=== PATIENT | female | born 1960 | race Caucasian/White ===

== ENCOUNTER → 2016-07-23 | Outpatient (CLI) | payer OTHER ==
--- NOTE | 2016-07-24 10:49 | MM ---
Reason for exam: screening (asymptomatic). Last mammogram was performed 19 years and 2 months ago. History: Patient is nulliparous. Physical Findings: A clinical breast exam by your physician is recommended on an annual basis and results should be correlated with mammographic findings. MG Screening Mammo w CAD Bilateral CC and MLO view(s) were taken. No prior studies available for comparison. The breast tissue is extremely dense which could obscure a lesion on mammography. There is no discrete abnormality. ASSESSMENT: Benign, BI-RAD 2 RECOMMENDATION: Routine screening mammogram of both breasts in 1 year.
== END | disposition home or self-care (01) ==
LOC: RADMAMWWP 07:57
PROVIDERS: ATTEND Internal Medicine
DX: Z12.31 Encounter for screening mammogram for malignant neoplasm of breast (principal)

== ENCOUNTER 2016-07-29 07:34 | Emergency (ER) | payer OTHER ==
--- NOTE | 2016-07-29 08:26 | ED ---
Eye Problem HPI - General Chief complaint: Eye Problems Stated complaint: eye pain Time Seen by Provider: 07/29/16 08:03 Source: patient, RN notes reviewed Mode of arrival: ambulatory Limitations: no limitations - History of Present Illness Initial comments: 56-year-old female presents emergency Department with chief complaint of right eye redness. Patient states started 3 days ago. Patient states she has a history of uveitis. Patient states that she has had treatment from her underwear hemmer several times with Pred forte. Patient states that she does have some pain and irritation noted of the eye she denies any visual changes. She states that she noticed the redness and some photophobia. Patient states that there has been some tearing but no purulent drainage. Patient denies any trauma. - Related Data Home Medications Medication Instructions Recorded Confirmed ARIPiprazole [Abilify] 0 mg PO 04/26/14 04/26/14 Atorvastatin Calcium [Lipitor] 10 mg PO DAILY 04/26/14 04/26/14 DULoxetine HCL [Cymbalta] 20 mg PO DAILY 04/26/14 04/26/14 HYDROcodone/APAP 5-325MG [[place] 5] 1 each PO Q6HR PRN 04/26/14 04/26/14 Levothyroxine Sodium [Synthroid] 88 mcg PO DAILY 04/26/14 04/26/14 Loratadine [Claritin] 5 mg PO DAILY 04/26/14 04/26/14 Previous Rx's Medication Instructions Recorded Ibuprofen [Motrin] 600 mg PO Q6HR PRN #20 tab 04/26/14 Sulfamethox-Tmp 800-160Mg [Bactrim 2 each PO Q12HR #56 tab 04/26/14 DS 800-160 mg] Allergies Allergy/AdvReac Type Severity Reaction Status Date / Time No Known Allergies Allergy Verified 07/29/16 07:40 Review of Systems ROS Statement: Those systems with pertinent positive or pertinent negative responses have been documented in the HPI. ROS Other: All systems not noted in ROS Statement are negative. Past Medical History Past Medical History: Asthma, COPD, Hyperlipidemia, Thyroid Disorder Additional Past Medical History / Comment(s): herpes scoliosis History of Any Multi-Drug Resistant Organisms: MRSA Date of last positivie culture/infection: 04/26/2014 MDRO Source:: Groin Past Surgical History: Orthopedic Surgery Additional Past Surgical History / Comment(s): shoulder, arm, Past Psychological History: Depression Smoking Status: Current every day smoker Past Alcohol Use History: None Reported, Rare Past Drug Use History: None Reported General Exam Limitations: no limitations General appearance: alert, in no apparent distress Head exam: Present: atraumatic, normocephalic, normal inspection Eye exam: Present: PERRL, EOMI, conjunctival injection, other (No uptake of fluorescein dye). Absent: normal appearance, scleral icterus, periorbital swelling, periorbital tenderness ENT exam: Present: normal exam, normal oropharynx, mucous membranes moist Neck exam: Present: normal inspection. Absent: tenderness, meningismus, lymphadenopathy Respiratory exam: Present: normal lung sounds bilaterally. Absent: respiratory distress, wheezes, rales, rhonchi, stridor Cardiovascular Exam: Present: regular rate, normal rhythm, normal heart sounds. Absent: systolic murmur, diastolic murmur, rubs, gallop, clicks Course Vital Signs 07/29/16 07:36 Temperature 97.0 F L Pulse Rate 100 Respiratory 18 Rate Blood Pressure 153/69 O2 Sat by Pulse 100 Oximetry Medical Decision Making - Medical Decision Making 56-year-old female presented for right eye redness. Patient states this a large amount of injection. This may be uveitis. I did discuss the case with Dr. Leyva's office and they agreed to see the patient now the patient will be discharged and sent over for further evaluation. Disposition Clinical Impression: Redness of right eye, Uveitis Disposition: HOME SELF-CARE Condition: Stable Instructions: Iritis (ED) Additional Instructions: Please go directly to Dr. Amaral's office.Please return to the Emergency Department if symptoms worsen or any other concerns. Referrals: Truong Dominguez MD [Primary Care Provider] - 1-2 days Dajuan Castaneda MD [STAFF PHYSICIAN] - 1-2 days Time of Disposition: 08:26
[2016-07-29 09:10] VITALS: BP 141/82; PULSE 78; RESP 16; TEMP 97.5
== END 2016-07-29 09:22 | disposition home or self-care (01) ==
LOC: EC 07:34
DX: H20.9 Unspecified iridocyclitis (principal); E07.9 Disorder of thyroid, unspecified; F32.9 Major depressive disorder, single episode, unspecified; F17.200 Nicotine dependence, unspecified, uncomplicated; Z79.899 Other long term (current) drug therapy
CPT/HCPCS: 99283

== ENCOUNTER 2018-04-06 07:46 | Emergency (ER) | payer OTHER ==
[2018-04-06 08:01] VITALS: RESP 16; TEMP 98.1
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
--- NOTE | 2018-04-06 08:57 | XR ---
EXAMINATION TYPE: XR forearm LT, XR wrist complete LT DATE OF EXAM: 04/06/2018 CLINICAL HISTORY: Pain after fall injury. TECHNIQUE: Two views of the left forearm are obtained. 4 views left wrist are acquired. COMPARISON: None. FINDINGS: Demineralization is present which is noted to lower radiographic sensitivity. There is disp laced comminuted fracture through distal humerus. Please see same day humerus report for complete det ails. There is no acute fracture or dislocation seen in the left radius or ulna. Overlying soft tissu e is unremarkable. Images of left wrist show old healed fractures of distal radial meta-epiphysis and ulnar styloid. Car pal joint spaces are maintained. No acute fracture or dislocation is seen. Overlying soft tissue is u nremarkable. IMPRESSION: There is no acute fracture or dislocation seen in the left wrist, radius, or ulna. Displ aced comminuted acute fracture distal humerus noted.
--- NOTE | 2018-04-06 08:59 | XR ---
Left humerus HISTORY: Trauma and pain 2 views of the left humerus on 4 images correlated to left forearm same date Low bone mineralization. Intra-articular comminuted distal humeral fracture is present, displaced hum eral condyles. IMPRESSION: Elbow fractures
[2018-04-06 11:40] VITALS: BP 138/83; PULSE 81
== END 2018-04-06 11:00 | disposition short-term general hospital (02) ==
LOC: EC 07:46
DX: S42.402A Unspecified fracture of lower end of left humerus, initial encounter for closed fracture (principal); E78.5 Hyperlipidemia, unspecified; J44.9 Chronic obstructive pulmonary disease, unspecified; E07.9 Disorder of thyroid, unspecified; F32.9 Major depressive disorder, single episode, unspecified; F17.200 Nicotine dependence, unspecified, uncomplicated; Z79.51 Long term (current) use of inhaled steroids; Z79.899 Other long term (current) drug therapy; W01.0XXA Fall on same level from slipping, tripping and stumbling without subsequent striking against object, initial encounter; Y93.01 Activity, walking, marching and hiking
CPT/HCPCS: 99285

== ENCOUNTER 2018-12-23 12:35 | Emergency (ER) | payer OTHER ==
[2018-12-23 12:43] VITALS: BP 114/88; PULSE 90; RESP 16; TEMP 98
--- NOTE | 2018-12-23 13:44 | US ---
EXAMINATION TYPE: US venous doppler duplex LE LT DATE OF EXAM: 12/23/2018 1:32 PM COMPARISON: NONE CLINICAL HISTORY: swelling. Pain and edema left leg SIDE PERFORMED: left TECHNIQUE: The lower extremity deep venous system is examined utilizing real time linear array sonog cheo with graded compression, doppler sonography and color-flow sonography. VESSELS IMAGED: External Iliac Vein (EIV) Common Femoral Vein Deep Femoral Vein Greater Saphenous Vein * Femoral Vein Popliteal Vein Small Saphenous Vein * Proximal Calf Veins (* superficial vessels) Left Leg: No evidence of DVT IMPRESSION: 1. Left lower extremity ultrasound negative for deep venous thrombosis.
--- NOTE | 2018-12-23 14:31 | XR ---
EXAMINATION TYPE: XR ankle complete LT DATE OF EXAM: 12/23/2018 COMPARISON: NONE HISTORY: Pain FINDINGS: Three views of the ankle demonstrate the ankle mortise to be intact and symmetric. The joint spaces are preserved. The osseous structures are intact. Diffuse osteopenia. IMPRESSION: 1. No definite acute fracture or dislocation, if symptoms persist follow-up study in 7 to 10 days wou ld be suggested.
--- NOTE | 2018-12-23 14:32 | XR ---
EXAMINATION TYPE: XR tibia fibula LT DATE OF EXAM: 12/23/2018 COMPARISON: NONE HISTORY: Pain TECHNIQUE: Two views are submitted. FINDINGS: Diffuse osteopenia with narrowing of the medial compartment knee joint. There is a displaced fracture involving the proximal neck of the fibula. IMPRESSION: 1. There is a displaced fracture involving the proximal fibula with comminution.
--- NOTE | 2018-12-23 14:32 | XR ---
EXAMINATION TYPE: XR pelvis AP view DATE OF EXAM: 12/23/2018 COMPARISON: NONE HISTORY: Pain The osseous structures are intact and the joint spaces are preserved. No acute fracture is seen. Vi sualized bowel gas pattern is nonspecific. IMPRESSION: 1. No acute fracture.
--- NOTE | 2018-12-23 14:33 | XR ---
EXAMINATION TYPE: XR knee complete LT DATE OF EXAM: 12/23/2018 COMPARISON: NONE HISTORY: Pain TECHNIQUE: Four views are submitted. FINDINGS: There is diffuse osteopenia and there is narrowing the medial compartment of the knee joint. There is a displaced fracture involving the proximal fibula. IMPRESSION: 1. Displaced fracture proximal fibula. 2. Osteoarthritis. 3. Diffuse osteopenia.
--- NOTE | 2018-12-23 14:34 | XR ---
EXAMINATION TYPE: XR foot complete LT DATE OF EXAM: 12/23/2018 COMPARISON: NONE HISTORY: Pain TECHNIQUE: Three views are submitted. FINDINGS: The osseous structures are intact. There is no acute fracture or dislocation. Diffuse osteopenia. There is narrowing and hypertrophic change of the first MTP joint. Tiny sclerotic focus involving the calcaneus is most typical of a bone island. IMPRESSION: 1. No acute fracture or dislocation. If symptoms persist, follow-up exam in 7 to 10 days could be ob tained.
--- NOTE | 2018-12-23 14:40 | XR ---
EXAMINATION TYPE: XR femur LT DATE OF EXAM: 12/23/2018 COMPARISON: None HISTORY: Trauma, pain TECHNIQUE: Left femur is examined in 2 projections FINDINGS: Femoral head articulates with the acetabulum. No acute fracture or dislocation is evident. Mild joint space narrowing of the knee may be present. There is a fracture at the fibular head on the lateral femur projection. IMPRESSION: 1. Fracture at the femoral head partially visualized. 2. Femur appears intact.
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
== END 2018-12-23 15:25 | disposition left against medical advice (07) ==
LOC: EC 12:35
DX: S82.832A Other fracture of upper and lower end of left fibula, initial encounter for closed fracture (principal); J44.9 Chronic obstructive pulmonary disease, unspecified; E07.9 Disorder of thyroid, unspecified; E78.5 Hyperlipidemia, unspecified; F32.9 Major depressive disorder, single episode, unspecified; Z79.51 Long term (current) use of inhaled steroids; Z79.890 Hormone replacement therapy; Z79.899 Other long term (current) drug therapy; Z87.891 Personal history of nicotine dependence; V29.9XXA Motorcycle rider (driver) (passenger) injured in unspecified traffic accident, initial encounter
CPT/HCPCS: 72170; 99284

== ENCOUNTER 2019-04-25 08:15 | Inpatient (IN) | payer OTHER ==
[2019-04-25] MEDS ORDERED: SODIUM CHLORIDE 0.9% 1,000 ML IV ONE ×2 (08:24→11:44)
--- NOTE | 2019-04-25 08:25 | ED ---
General Adult HPI - General Stated complaint: AMS, ETOH Time Seen by Provider: 04/25/19 08:15 Source: patient, EMS, RN notes reviewed, old records reviewed - History of Present Illness Initial comments: This is a 59-year-old female who presents emergency department intoxicated. Patient is not really sure why she is here she's given multiple stories but according to EMS they were called because the patient refuses to get out of her chair and she is urinating and defecating in the chair and there was also evidence of emesis around her. Patient herself just wants something for her chronic back pain for the last 4 years but she states she's had no injury. Patient states she is having difficulty walking but according to EMS she was able to get up out of her chair and walk to the stretcher. Patient denies any recent fever chills per patient denies any chest pain palpitations difficulty breathing. Patient denies any abdominal pain. She states she did drink heavily and smokes marijuana and has also taken and [place]. - Related Data Home Medications Medication Instructions Recorded Confirmed Loratadine [Claritin] 10 mg PO DAILY 04/26/14 12/23/18 Atorvastatin [Lipitor] 40 mg PO HS 07/29/16 12/23/18 Gemfibrozil [Lopid] 600 mg PO AC-BID 07/29/16 12/23/18 Omeprazole [PriLOSEC] 20 mg PO AC-BID 07/29/16 12/23/18 ARIPiprazole [Abilify] 10 mg PO DAILY 04/06/18 12/23/18 Albuterol Inhaler [Ventolin Hfa 1 - 2 puff INHALATION RT-Q6H PRN 04/06/18 12/23/18 Inhaler] Budesonide-Formot 160-4.5 Mcg 2 puff INHALATION RT-BID 04/06/18 12/23/18 [Symbicort 160-4.5 Mcg Inhaler] DULoxetine HCL [Cymbalta] 60 mg PO DAILY 04/06/18 12/23/18 Ergocalciferol [Vitamin D2] 50,000 unit PO TU 04/06/18 12/23/18 Furosemide [Lasix] 20 mg PO DAILY 04/06/18 12/23/18 Levothyroxine Sodium [Synthroid] 100 mcg PO DAILY 04/06/18 12/23/18 Multivitamins, Thera [Multivitamin 1 tab PO DAILY 04/06/18 12/23/18 (formulary)] traZODone HCL 50 mg PO HS PRN 04/06/18 12/23/18 Allergies Allergy/AdvReac Type Severity Reaction Status Date / Time No Known Allergies Allergy Verified 12/23/18 14:01 Review of Systems ROS Statement: Those systems with pertinent positive or pertinent negative responses have been documented in the HPI. ROS Other: All systems not noted in ROS Statement are negative. Past Medical History Past Medical History: Asthma, COPD, Hyperlipidemia, Thyroid Disorder Additional Past Medical History / Comment(s): herpes and scoliosis History of Any Multi-Drug Resistant Organisms: MRSA Date of last positivie culture/infection: 04/26/2014 MDRO Source:: Groin Past Surgical History: Orthopedic Surgery Additional Past Surgical History / Comment(s): shoulder, arm, Past Psychological History: Depression Smoking Status: Former smoker Past Alcohol Use History: None Reported, Rare Past Drug Use History: Marijuana - Past Family History Father Family Medical History: Myocardial Infarction ([place]) Additional Family Medical History / Comment(s): Father of a coronary thrombus at the age of 48yrs. Mother Family Medical History: No Reported History Additional Family Medical History / Comment(s): Mother is healthy and is 86 yrs old. General Exam - General Exam Comments Initial Comments: GENERAL: Patient is well-developed and well-nourished. Patient is nontoxic and well- hydrated and appears to be very intoxicated ENT: Neck is soft and supple. No significant lymphadenopathy is noted. Oropharynx is clear. Moist mucous membranes. Neck has full range of motion without eliciting any pain. EYES: The sclera were anicteric and conjunctiva were pink and moist. Extraocular movements were intact and pupils were equal round and reactive to light. Eyelids were unremarkable. PULMONARY: Unlabored respirations. Good breath sounds bilaterally. No audible rales rhonchi or wheezing was noted. CARDIOVASCULAR: There is a regular rate and rhythm without any murmurs gallops or rubs. ABDOMEN: Soft and nontender with normal bowel sounds. No palpable organomegaly was noted. There is no palpable pulsatile mass. SKIN: Skin is clear with no lesions or rashes and otherwise unremarkable. NEUROLOGIC: Patient is alert and oriented x3. Cranial nerves II through XII are grossly intact. Motor and sensory are also intact. Normal speech, volume and content. Symmetrical smile. MUSCULOSKELETAL: Normal extremities with adequate strength and full range of motion. LYMPHATICS: No significant lymphadenopathy is noted PSYCHIATRIC: Patient is too intoxicated to accurately assess Course Vital Signs 04/25/19 08:34 Temperature 98.9 F Pulse Rate 97 Respiratory 20 Rate Blood Pressure 120/71 O2 Sat by Pulse 96 Oximetry Medical Decision Making - Medical Decision Making EKG shows sinus rhythm at 104 bpm [place] interval 172 QRS is 90 QT interval 380 QTC is 499. Patient's EKG shows some ST segment depression in leads V4 V5 and V6. CT of the brain shows no acute abnormality. Patient attempted to ambulate and she said she could not and quickly back down about - Lab Data Result diagrams: 04/25/19 08:23 04/25/19 08:23 Lab Results 04/25/19 04/25/19 04/25/19 Range/Units 08:23 08:23 08:23 WBC 8.9 (3.8-10.6) k/uL RBC 5.05 (3.80-5.40) m/uL Hgb 14.3 (11.4-16.0) gm/dL Hct 44.7 (34.0-46.0) % MCV 88.5 (80.0-100.0) fL MCH 28.4 (25.0-35.0) pg MCHC 32.1 (31.0-37.0) g/dL RDW 15.1 (11.5-15.5) % Plt Count 208 (150-450) k/uL Neutrophils % 67 % Lymphocytes % 24 % Monocytes % 3 % Eosinophils % 3 % Basophils % 1 % Neutrophils # 6.0 (1.3-7.7) k/uL Lymphocytes # 2.1 (1.0-4.8) k/uL Monocytes # 0.3 (0-1.0) k/uL Eosinophils # 0.2 (0-0.7) k/uL Basophils # 0.1 (0-0.2) k/uL Sodium 144 (137-145) mmol/L Potassium 2.8 L (3.5-5.1) mmol/L Chloride 104 (98-107) mmol/L Carbon Dioxide 26 (22-30) mmol/L Anion Gap 14 mmol/L BUN 19 H (7-17) mg/dL Creatinine 0.44 L (0.52-1.04) mg/dL Est GFR (CKD-EPI)AfAm >90 (>60 ml/min/1.73 sqM) Est GFR (CKD-EPI)NonAf >90 (>60 ml/min/1.73 sqM) Glucose 135 H (74-99) mg/dL Calcium 9.6 (8.4-10.2) mg/dL Magnesium 1.6 (1.6-2.3) mg/dL Total Bilirubin 0.5 (0.2-1.3) mg/dL AST 29 (14-36) U/L ALT 32 (4-34) U/L Alkaline Phosphatase 103 (38-126) U/L Total Protein 6.8 (6.3-8.2) g/dL Albumin 4.1 (3.5-5.0) g/dL Salicylates <1.0 mg/dL Urine Opiates Screen (NotDetected) Ur Oxycodone Screen (NotDetected) Urine Methadone Screen (NotDetected) Ur Propoxyphene Screen (NotDetected) Acetaminophen <10.0 ug/mL Ur Barbiturates Screen (NotDetected) U Tricyclic Antidepress (NotDetected) Ur Phencyclidine Scrn (NotDetected) Ur Amphetamines Screen (NotDetected) U Methamphetamines Scrn (NotDetected) U Benzodiazepines Scrn (NotDetected) Urine Cocaine Screen (NotDetected) U Marijuana (THC) Screen (NotDetected) Serum Alcohol mg/dL 04/25/19 04/25/19 Range/Units 08:28 09:10 WBC (3.8-10.6) k/uL RBC (3.80-5.40) m/uL Hgb (11.4-16.0) gm/dL Hct (34.0-46.0) % MCV (80.0-100.0) fL MCH (25.0-35.0) pg MCHC (31.0-37.0) g/dL RDW (11.5-15.5) % Plt Count (150-450) k/uL Neutrophils % % Lymphocytes % % Monocytes % % Eosinophils % % Basophils % % Neutrophils # (1.3-7.7) k/uL Lymphocytes # (1.0-4.8) k/uL Monocytes # (0-1.0) k/uL Eosinophils # (0-0.7) k/uL Basophils # (0-0.2) k/uL Sodium (137-145) mmol/L Potassium (3.5-5.1) mmol/L Chloride (98-107) mmol/L Carbon Dioxide (22-30) mmol/L Anion Gap mmol/L BUN (7-17) mg/dL Creatinine (0.52-1.04) mg/dL Est GFR (CKD-EPI)AfAm (>60 ml/min/1.73 sqM) Est GFR (CKD-EPI)NonAf (>60 ml/min/1.73 sqM) Glucose (74-99) mg/dL Calcium (8.4-10.2) mg/dL Magnesium (1.6-2.3) mg/dL Total Bilirubin (0.2-1.3) mg/dL AST (14-36) U/L ALT (4-34) U/L Alkaline Phosphatase (38-126) U/L Total Protein (6.3-8.2) g/dL Albumin (3.5-5.0) g/dL Salicylates mg/dL Urine Opiates Screen Detected H (NotDetected) Ur Oxycodone Screen Not Detected (NotDetected) Urine Methadone Screen Not Detected (NotDetected) Ur Propoxyphene Screen Not Detected (NotDetected) Acetaminophen ug/mL Ur Barbiturates Screen Not Detected (NotDetected) U Tricyclic Antidepress Detected H (NotDetected) Ur Phencyclidine Scrn Not Detected (NotDetected) Ur Amphetamines Screen Not Detected (NotDetected) U Methamphetamines Scrn Not Detected (NotDetected) U Benzodiazepines Scrn Not Detected (NotDetected) Urine Cocaine Screen Not Detected (NotDetected) U Marijuana (THC) Screen Detected H (NotDetected) Serum Alcohol 174 mg/dL Disposition Clinical Impression: Alcohol intoxication, Altered mental status, Unable to ambulate, Hypokalemia Disposition: ADMITTED IP TO THIS [facility] Time of Disposition: 11:37
[2019-04-25 08:41] LABS: Basophils # (A) 0.1 k/uL (0-0.2); Basophils % (A) 1 %; Eosinophils # (A) 0.2 k/uL (0-0.7); Eosinophils % (A) 3 %; HCT 44.7 % (34.0-46.0); HGB 14.3 gm/dL (11.4-16.0); Lymphocytes # (A) 2.1 k/uL (1.0-4.8); Lymphocytes % (A) 24 %; MCH 28.4 pg (25.0-35.0); MCHC 32.1 g/dL (31.0-37.0); MCV 88.5 fL (80.0-100.0); Mean Platelet Volume 8.8; Monocytes # (A) 0.3 k/uL (0-1.0); Monocytes % (A) 3 %; Neutrophils % (A) 67 %; Platelet Count 208 k/uL (150-450); RBC 5.05 m/uL (3.80-5.40); RDW 15.1 % (11.5-15.5); WBC 8.9 k/uL (3.8-10.6)
[2019-04-25] MEDS ORDERED: SODIUM CHLORIDE 0.9% 1,000 ML with MVI, ADULT NO.4 WITH VIT K 10 ML, THIAMINE 100 MG, F... IV ONE ×4 (08:45)
[2019-04-25 08:55] LABS: ALT 32 U/L (4-34); AST 29 U/L (14-36); African American GFR (CKD) >90 (>60 ml/min/1.73 sqM); Albumin 4.1 g/dL (3.5-5.0); Alkaline Phosphatase 103 U/L (38-126); Anion Gap 14 mmol/L; Blood Urea Nitrogen 19 mg/dL (7-17); Calcium 9.6 mg/dL (8.4-10.2); Carbon Dioxide 26 mmol/L (22-30); Chloride 104 mmol/L (98-107); Glucose 135 mg/dL (74-99); Magnesium 1.6 mg/dL (1.6-2.3); Non-African American GFR(CKD) >90 (>60 ml/min/1.73 sqM); Potassium 2.8 mmol/L (3.5-5.1); Sodium 144 mmol/L (137-145); Total Bilirubin 0.5 mg/dL (0.2-1.3); Total Protein 6.8 g/dL (6.3-8.2)
[2019-04-25 08:59] LABS: Acetaminophen <10.0 ug/mL; Salicylate <1.0 mg/dL
[2019-04-25 09:08] LABS: Amphetamine Screen,Urine Not Detected (NotDetected); Barbiturate Screen,Urine Not Detected (NotDetected); Benzodiazepines Screen,Urine Not Detected (NotDetected); Cocaine Screen,Urine Not Detected (NotDetected); Methadone Screen, Urine Not Detected (NotDetected); Opiate Screen,Urine Detected (NotDetected); Oxycodone Screen, Urine Not Detected (NotDetected); Phencyclidine Screen,Urine Not Detected (NotDetected); Tricyclic Antidepressant,Urine Detected (NotDetected); Urn Cannabinoid Scrn Detected (NotDetected)
--- NOTE | 2019-04-25 11:08 | CT ---
EXAMINATION TYPE: CT brain wo con DATE OF EXAM: 04/25/2019 HISTORY: altered mental status CT DLP: 1099.4 mGycm. Automated Exposure Control for Dose Reduction was Utilized. TECHNIQUE: CT scan of the head is performed without contrast. COMPARISON: None. FINDINGS: There is no acute intracranial hemorrhage or midline shift identified. There is diffuse v entricular and sulcal prominence consistent with diffuse cerebral atrophy this is most prominent over the bilateral frontal lobes. There is low-attenuation in the periventricular white matter consisten t with chronic small vessel ischemic change. There is old fracture deformity medial wall left orbit. Globes are intact bilaterally. Mild mucosal thickening anterior sphenoid sinuses bilaterally. Mild to moderate mucosal thickening involving ethmoid sinuses bilaterally. IMPRESSION: No acute intracranial hemorrhage or midline shift. There is [id number] diffuse ce rebral atrophy greatest over bilateral frontal lobes and mild to minimal chronic small vessel ischemi c change noted.
[2019-04-25] MEDS ORDERED: THIAMINE 100 MG/ML 2 ML VIAL IM STA (12:19)
[2019-04-25] MEDS ORDERED: LORazepam 2 MG/ML INJ IV PRN ×3 (12:19)
[2019-04-25] MEDS: POTASSIUM CHLORIDE 10 MEQ in WATER FOR INJECTION 1 100ML.BAG IVPB SCH ×4 (14:35→18:01)
[2019-04-25] MEDS ORDERED: DEXAMETHASONE SOD PHOSPHATE 10 MG/ML 1 ML VIAL IV STA (15:02)
[2019-04-25] MEDS: THIAMINE 100 MG TAB PO SCH (16:11)
[2019-04-25] MEDS: MORPHINE SULFATE 2 MG/ML SYRINGE IVP PRN (16:40)
--- NOTE | 2019-04-25 16:53 | P.HPIM ---
History of Present Illness This is a pleasant 59 years old female with past medical history of asthma/COPD, hyperlipidemia, hypothyroidism, depression. She follows up with Dr. Calvin Calle the neurologist and she is recently prescribed [place] 10 mg. She is a patient of Dr. darnell. pt states she came to hospital because of difficulty walking , she has long history of low back pain radiating to both legs/ankles and she follows up with , she is on norco 10-325 mg for this reason, over the last six months she was walking depending on the help of someone to lean on , and could walk small distance ( across the room ) as pt describes. over the last one week it became more difficult for her to walk, she is complaining from significant low back pain and on her pelvis when she walks today when EMS she was in her feces and urine , she explains that because she was drinking vodka, she drinks about twice per week and she could not tell the amount exactly , also she smokes cigarettes b about 1/2 PPD. pt is counseled and she agrees with nicotine patch. Vitals looks stable. Labs CBC and BMP were unremarkable except for low potassium at 2.8, creatinine and sodium are within normal limits, liver enzymes not elevated. Urine drug screen is positive for opioids, tricyclic antidepressants and marijuana. Serum alcohol level was 174. Review of Systems CONSTITUTIONAL: No fever, no malaise, no fatigue. HEENT: No recent visual problems or hearing problems. Denied any sore throat. CARDIOVASCULAR: No orthopnea, PND, no palpitations, no syncope. PULMONARY: No shortness of breath, no cough, no hemoptysis. GASTROINTESTINAL: No diarrhea, no nausea, no vomiting, no abdominal pain. Normoactive bowel sounds. NEUROLOGICAL: No headaches, no weakness, no numbness. HEMATOLOGICAL: Denies any bleeding or petechiae. GENITOURINARY: Denies any burning micturition, frequency, or urgency. MUSCULOSKELETAL/RHEUMATOLOGICAL: Denies any joint pain, swelling, or any muscle pain. ENDOCRINE: Denies any polyuria or polydipsia. Past Medical History Past Medical History: Asthma, COPD, Hyperlipidemia, Thyroid Disorder Additional Past Medical History / Comment(s): herpes and scoliosis History of Any Multi-Drug Resistant Organisms: MRSA Date of last positivie culture/infection: 04/26/2014 MDRO Source:: Groin Past Surgical History: Orthopedic Surgery Additional Past Surgical History / Comment(s): shoulder, arm, Past Psychological History: Depression Smoking Status: Former smoker Past Alcohol Use History: None Reported, Rare Past Drug Use History: Marijuana - Past Family History Father Family Medical History: Myocardial Infarction ([place]) Additional Family Medical History / Comment(s): Father of a coronary thrombus at the age of 48yrs. Mother Family Medical History: No Reported History Additional Family Medical History / Comment(s): Mother is healthy and is 86 yrs old. Medications and Allergies Home Medications Medication Instructions Recorded Confirmed Type Loratadine [Claritin] 10 mg PO DAILY 04/26/14 04/25/19 History Atorvastatin [Lipitor] 40 mg PO HS 07/29/16 04/25/19 History Omeprazole [PriLOSEC] 20 mg PO AC-BID 07/29/16 04/25/19 History ARIPiprazole [Abilify] 10 mg PO DAILY 04/06/18 04/25/19 History Albuterol Inhaler [Ventolin Hfa 1 - 2 puff INHALATION RT-Q6H PRN 04/06/18 04/25/19 History Inhaler] DULoxetine HCL [Cymbalta] 60 mg PO DAILY 04/06/18 04/25/19 History Ergocalciferol [Vitamin D2] 50,000 unit PO TU 04/06/18 04/25/19 History Furosemide [Lasix] 20 mg PO DAILY 04/06/18 04/25/19 History Multivitamins, Thera [Multivitamin 1 tab PO DAILY 04/06/18 04/25/19 History (formulary)] traZODone HCL 50 mg PO HS PRN 04/06/18 04/25/19 History HYDROcodone/APAP 10-325MG [[place] 1 tab PO TID 04/25/19 04/25/19 History 10-325] Levothyroxine Sodium [Synthroid] 88 mcg PO DAILY 04/25/19 04/25/19 History Allergies Allergy/AdvReac Type Severity Reaction Status Date / Time No Known Allergies Allergy Verified 04/25/19 12:35 Physical Exam Vitals: Vital Signs Temp Pulse Resp BP Pulse Ox 04/25/19 13:39 98.9 F 100 18 163/99 96 04/25/19 13:32 100 18 163/99 96 04/25/19 08:34 98.9 F 97 20 120/71 96 Intake and Output 04/24/19 04/25/19 04/25/19 22:59 06:59 14:59 Other: Weight 54.431 kg GENERAL: The patient is alert and oriented x3, not in any acute distress. Well developed, well nourished. HEENT: Pupils are round and equally reacting to light. EOMI. No scleral icterus. No conjunctival pallor. Normocephalic, atraumatic. No pharyngeal erythema. No thyromegaly. CARDIOVASCULAR: S1 and S2 present. No murmurs, rubs, or gallops. PULMONARY: Chest is clear to auscultation, no wheezing or crackles. ABDOMEN: Soft, nontender, nondistended, normoactive bowel sounds. No palpable organomegaly. MUSCULOSKELETAL: No joint swelling or deformity. EXTREMITIES: No cyanosis, clubbing, or pedal edema. -NEUROLOGICAL: cranial nn are grossly intact. strength in both lower ext: mild weakness bilaterally, sensation is intact, meningeal signs are absent SKIN: No rashes. No petechiae Results CBC & Chem 7: 04/25/19 08:23 04/25/19 08:23 Labs: Abnormal Lab Results - Last 24 Hours (Table) 04/25/19 04/25/19 Range/Units 08:23 08:28 Potassium 2.8 L (3.5-5.1) mmol/L BUN 19 H (7-17) mg/dL Creatinine 0.44 L (0.52-1.04) mg/dL Glucose 135 H (74-99) mg/dL Urine Opiates Screen Detected H (NotDetected) U Tricyclic Antidepress Detected H (NotDetected) U Marijuana (THC) Screen Detected H (NotDetected) Thrombosis Risk Factor Assmnt - Choose All That Apply Any of the Below Risk Factors Present?: Yes Each Factor Represents 1 point: Abnormal pulmonary function (COPD), Age 41-60 years Other Risk Factors: No Other congenital or acquired thrombophilia - If yes, enter type in comment: No Thrombosis Risk Factor Assessment Total Risk Factor Score: 2 Thrombosis Risk Factor Assessment Level: Low Risk Assessment and Plan Assessment: ongoing chronic low back pain radiating to both ankles , suspicious for sciatica , with chronic difficulty walking and recent worsening Alcohol abuse, risk of withdrawal severe Hypokalemia nicotine dependance Asthma/COPD, not an active issue Hyperlipidemia Hypothyroidism Depression Plan: this is a pleasant 59 yo F who presests with alcohol abuse , risk of alcohol withdrawal, also sever hypokalemia which might be contributing to her worsening weakness, replaced potassium and follow up the level. call orthopedic consult, start decadron , start ca-vit.D, check TSH and B12/folate level, pain management, CIWA and vitamins Labs and medication were reviewed.. Continue same treatment. Continue with symptomatic treatment. Resume home medication. Monitor lytes and vitals. DVT and GI prophylaxis. Further recommendations of the clinical course of the patient DVT prophylaxis: Subcutaneous heparin GI Prophylaxis: Pepcid PT/OT: Pending Prognosis is guarded
[2019-04-25] MEDS ORDERED: ERGOCALCIFEROL 50,000 UNIT CAP PO SCH (17:00)
[2019-04-25] MEDS: NICOTINE 21MG/24HR PATCH TRANSDERM SCH (17:58)
[2019-04-25] MEDS: LIDOCAINE 5% PATCH TOPICAL SCH (17:59)
--- NOTE | 2019-04-25 18:15 | XR ---
EXAMINATION TYPE: XR lumbar spine 2 or 3V DATE OF EXAM: 04/25/2019 COMPARISON: NONE HISTORY: Low back pain TECHNIQUE: 3 views FINDINGS: There is thoracolumbar levoscoliosis. There is lateral subluxation of L3 to the left of L4 on the frontal view. Subluxation is 1 cm. There is narrowing of disc spaces in the lumbar spine from L2 to L5. There is spurring of the endplates. There is no significant compression deformity. Sacroili ac joints are intact. IMPRESSION: Subluxation deformity. Scoliotic deformity. No fracture seen. Multilevel degenerative dis c space narrowing.
[2019-04-25] MEDS: ATORVASTATIN 40 MG TAB PO SCH (20:39)
[2019-04-25] MEDS: FAMOTIDINE 20 MG/2 ML VIAL IV SCH (20:40)
[2019-04-25] MEDS: HYDROcodone/APAP 10-325MG 1 EACH TAB PO SCH (20:40)
[2019-04-25] MEDS: HEPARIN SODIUM,PORCINE 5,000 UNIT/ML 1 ML VIAL SQ SCH (20:40)
[2019-04-25] MEDS: DEXAMETHASONE SOD PHOSPHATE 4 MG/ML 1 ML VIAL IV SCH (20:42)
[2019-04-25] MEDS ORDERED: amLODIPine 2.5 MG TAB PO SCH (22:30)
[2019-04-25] MEDS: DEXTROSE 5%-0.9% NACL 1,000 ML IV SCH (22:42)
[2019-04-26] MEDS: DEXAMETHASONE SOD PHOSPHATE 4 MG/ML 1 ML VIAL IV SCH ×4 (03:02→20:15)
[2019-04-26] MEDS: LEVOTHYROXINE 88 MCG TAB PO SCH (05:31)
[2019-04-26] MEDS: MORPHINE SULFATE 2 MG/ML SYRINGE IVP PRN ×2 (06:09→10:00)
--- NOTE | 2019-04-26 07:29 | P.PN ---
Subjective This is a pleasant 59 years old female w no signs or symptoms of alcohol withdrawal. with past medical history of asthma/COPD, hyperlipidemia, hypot hyroidism, depression. She follows up with Dr. Calvin Calle the neurologist and she is recently prescribed [place] 10 mg. She is a patient of Dr. darnell. pt states she came to hospital because of difficulty walking , she has long history of low back pain radiating to both legs/ankles and she follows up with , she is on norco 10-325 mg for this reason, over the last six months she was walking depending on the help of someone to lean on , and could walk small distance ( across the room ) as pt describes. over the last one week it became more difficult for her to walk, she is complaining from significant low back pain and on her pelvis when she walks today when EMS she was in her feces and urine , she explains that because she was drinking vodka, she drinks about twice per week and she could not tell the amount exactly , also she smokes cigarettes b about 1/2 PPD. pt is counseled and she agrees with nicotine patch. Vitals looks stable. Labs CBC and BMP were unremarkable except for low potassium at 2.8, creatinine and sodium are within normal limits, liver enzymes not elevated. Urine drug screen is positive for opioids, tricyclic antidepressants and marijuana. Serum alcohol level was 174. 04/26/2019 Patient presents with low back pain radiating to both legs and ankles has been going on for months associated with difficulty walking which get worse over the last week, she still complaining of from low back pain and needing pain medication. Vital signs stable and blood pressure on the high side and this morning 172/88, Norvasc has been added and going to increase the dose to 5 mg daily. Potassium was replaced and went on to follow-up the level. Follow-up magnesium level as well. Lumbar x-ray: Subluxation of L3 to the left of L4 with narrowing of the disc space from L2 down to L5. Patient is currently on Decadron, pain medication and spine orthopedic team have been consulted. no signs of alcohol withdrawal this morning Review of systems CONSTITUTIONAL: No fever, no malaise, no fatigue. HEENT: No recent visual problems or hearing problems. Denied any sore throat. CARDIOVASCULAR: No orthopnea, PND, no palpitations, no syncope. PULMONARY: No shortness of breath, no cough, no hemoptysis. GASTROINTESTINAL: No diarrhea, no nausea, no vomiting, no abdominal pain. Normoactive bowel sounds. NEUROLOGICAL: No headaches, no weakness, no numbness. HEMATOLOGICAL: Denies any bleeding or petechiae. GENITOURINARY: Denies any burning micturition, frequency, or urgency. MUSCULOSKELETAL/RHEUMATOLOGICAL: Denies any joint pain, swelling ENDOCRINE: Denies any polyuria or polydipsia. Active Medications Generic Name Dose Route Start Last Admin Trade Name Freq PRN Reason Stop Dose Admin Hydrocodone Bitart/Acetaminophen 1 each 04/25/19 22:00 04/25/19 20:40 [place] 10 PO 1 each TID LING Administration Amlodipine Besylate 2.5 mg 04/25/19 22:30 04/25/19 22:42 Norvasc PO 2.5 mg DAILY LING Administration Aripiprazole 10 mg 04/26/19 09:00 Abilify PO DAILY [facility] Atorvastatin Calcium 40 mg 04/25/19 21:00 04/25/19 20:39 Lipitor PO 40 mg HS LING Administration Dexamethasone Sodium Phosphate 4 mg 04/25/19 22:00 04/26/19 03:02 Decadron IV 4 mg Q6H LING Administration Duloxetine HCl 60 mg 04/26/19 09:00 Cymbalta PO DAILY [facility] Ergocalciferol 50,000 unit 04/25/19 17:00 04/25/19 17:59 Vitamin D2 PO 50,000 unit TU LING Administration Famotidine 20 mg 04/25/19 21:00 04/25/19 20:40 Pepcid IV 20 mg Q12HR LING Administration Furosemide 20 mg 04/26/19 09:00 Lasix PO DAILY [facility] Heparin Sodium (Porcine) 5,000 unit 04/25/19 21:00 04/25/19 20:40 Heparin SQ 5,000 unit Q12HR LING Administration Dextrose/Sodium Chloride 1,000 mls @ 50 mls/hr 04/25/19 22:30 04/25/19 22:42 Dextrose 5%-Ns Iv Soln IV 50 mls/hr .Q20H LING Administration Levothyroxine Sodium 88 mcg 04/26/19 06:30 04/26/19 05:31 Synthroid PO 88 mcg DAILY@0630 LING Administration Lidocaine 1 patch 04/25/19 17:00 04/25/19 17:59 Lidoderm TOPICAL 1 patch DAILY LING Administration Lorazepam 1 mg 04/25/19 12:19 04/26/19 05:27 Ativan IV 1 mg Q2HR PRN Administration CIWA 8 or 9 Lorazepam 1 mg 04/25/19 12:19 Ativan IV Q1HR PRN CIWA 10 to 15 Lorazepam 2 mg 04/25/19 12:19 Ativan IV 04/27/19 12:19 Q10M PRN CIWA 16 or higher Morphine Sulfate 2 mg 04/25/19 15:02 04/26/19 06:09 Morphine Sulfate (Inj) IVP 2 mg Q4H PRN Administration Pain/Discomfort Multivitamins 1 each 04/26/19 09:00 Theragran PO DAILY LING Nicotine 1 patch 04/25/19 17:00 04/25/19 17:58 Habitrol 21mg/24hr Patch TRANSDERM 1 patch DAILY LING Administration Thiamine HCl 100 mg 04/25/19 17:30 04/25/19 16:11 Vitamin B-1 PO 100 mg BID-W/MEALS LING Administration Objective - Vital Signs Vital signs: Vital Signs Temp 97.7 F 04/26/19 06:20 Pulse 88 04/26/19 06:20 Resp 17 04/26/19 06:20 BP 172/88 04/26/19 06:20 Pulse Ox 94 L 04/26/19 06:20 Intake & Output 04/25/19 04/26/19 04/26/19 18:59 06:59 18:59 Intake Total 500 Balance 500 Weight 54.431 kg Intake: Oral 500 Other: Voiding Method Bedpan Diaper # Voids 1 2 - Exam GENERAL: The patient is alert and oriented x3, not in any acute distress. Well developed, well nourished. HEENT: Pupils are round and equally reacting to light. EOMI. No scleral icterus. No conjunctival pallor. Normocephalic, atraumatic. No pharyngeal erythema. No thyromegaly. CARDIOVASCULAR: S1 and S2 present. No murmurs, rubs, or gallops. PULMONARY: Chest is clear to auscultation, no wheezing or crackles. ABDOMEN: Soft, nontender, nondistended, normoactive bowel sounds. No palpable organomegaly. MUSCULOSKELETAL: No joint swelling or deformity. EXTREMITIES: No cyanosis, clubbing, or pedal edema. -NEUROLOGICAL: cranial nn are grossly intact. strength in both lower ext: mild weakness bilaterally, sensation is intact, meningeal signs are absent SKIN: No rashes. No petechiae - Labs CBC & Chem 7: 04/25/19 08:23 04/25/19 08:23 Labs: Abnormal Lab Results - Last 24 Hours (Table) 04/25/19 04/25/19 Range/Units 08:23 08:28 Potassium 2.8 L (3.5-5.1) mmol/L BUN 19 H (7-17) mg/dL Creatinine 0.44 L (0.52-1.04) mg/dL Glucose 135 H (74-99) mg/dL Urine Opiates Screen Detected H (NotDetected) U Tricyclic Antidepress Detected H (NotDetected) U Marijuana (THC) Screen Detected H (NotDetected) Assessment and Plan Assessment: -ongoing chronic low back pain radiating to both ankles , suspicious for sciatica , with chronic difficulty walking and recent worsening . with Lumbar x- ray showing Subluxation of L3 to the left of L4 with narrowing of the disc space from L2 down to L5 -Alcohol abuse, risk of withdrawal -severe Hypokalemia -nicotine dependance -Asthma/COPD, not an active issue -Hyperlipidemia -Hypothyroidism -Depression Plan: this is a pleasant 59 yo F who presests with alcohol abuse , risk of alcohol withdrawal, also sever hypokalemia which might be contributing to her worsening weakness, replaced potassium and follow up the level. call orthopedic consult, start decadron , start ca-vit.D, check TSH and B12/folate level, pain management, CIWA and vitamins Labs and medication were reviewed.. Continue same treatment. Continue with symptomatic treatment. Resume home medication. Monitor lytes and vitals. DVT and GI prophylaxis. Further recommendations of the clinical course of the patient DVT prophylaxis: Subcutaneous heparin GI Prophylaxis: Pepcid PT/OT: Pending Prognosis is guarded
[2019-04-26] MEDS: HEPARIN SODIUM,PORCINE 5,000 UNIT/ML 1 ML VIAL SQ SCH ×2 (07:36→20:12)
[2019-04-26] MEDS: THIAMINE 100 MG TAB PO SCH ×2 (07:36→15:04)
[2019-04-26] MEDS: HYDROcodone/APAP 10-325MG 1 EACH TAB PO SCH ×3 (07:36→20:15)
[2019-04-26] MEDS: FAMOTIDINE 20 MG/2 ML VIAL IV SCH (07:36)
[2019-04-26] MEDS: NICOTINE 21MG/24HR PATCH TRANSDERM SCH (07:36)
[2019-04-26] MEDS: DULoxetine HCL 60 MG CAPSULE.DR PO SCH (07:37)
[2019-04-26] MEDS: MULTIVITAMINS, THERA 1 EACH TAB PO SCH (07:37)
[2019-04-26] MEDS: ARIPiprazole 10 MG TAB PO SCH (07:37)
[2019-04-26] MEDS: FUROSEMIDE 20 MG TAB PO SCH (07:37)
[2019-04-26] MEDS: LIDOCAINE 5% PATCH TOPICAL SCH (07:37)
[2019-04-26] MEDS ORDERED: amLODIPine 5 MG TAB PO SCH (09:00)
[2019-04-26 09:51] LABS: ALT 24 U/L (4-34); AST 23 U/L (14-36); African American GFR (CKD) >90 (>60 ml/min/1.73 sqM); Albumin 3.9 g/dL (3.5-5.0); Alkaline Phosphatase 117 U/L (38-126); Anion Gap 8 mmol/L; Blood Urea Nitrogen 19 mg/dL (7-17); Calcium 10.2 mg/dL (8.4-10.2); Carbon Dioxide 27 mmol/L (22-30); Chloride 102 mmol/L (98-107); Glucose 152 mg/dL (74-99); Magnesium 1.5 mg/dL (1.6-2.3); Non-African American GFR(CKD) >90 (>60 ml/min/1.73 sqM); Potassium 3.6 mmol/L (3.5-5.1); Sodium 137 mmol/L (137-145); Total Bilirubin 0.6 mg/dL (0.2-1.3); Total Protein 6.7 g/dL (6.3-8.2)
[2019-04-26] MEDS ORDERED: Magnesium Replacement Protocol 1 EACH MISC MISCELLANE PRN (10:11)
[2019-04-26] MEDS ORDERED: IOPAMIDOL M200 10 ML VIAL ONE (11:22)
[2019-04-26] MEDS ORDERED: methylPREDNISolone ACETATE 80 MG/ML 1 ML VIAL ONE (11:22)
[2019-04-26] MEDS ORDERED: LIDOCAINE 1% INJ 10MG/ML (20 ML MDV) ONE (11:22)
[2019-04-26 11:30] LABS: T4, Free (Free Thyroxine) 1.38 ng/dL (0.78-2.19)
[2019-04-26] MEDS: hydrALAZINE HCL 25 MG TAB PO PRN (13:08)
[2019-04-26] MEDS: ACETAMINOPHEN TAB 325 MG TAB PO PRN (13:08)
--- NOTE | 2019-04-26 14:30 | P.CNOR ---
<Kirk Galeano - Last Filed: 04/26/19 14:20> History of Present Illness - [facility] Consult date: 04/26/19 Requesting physician: Atilio E Anton Consult reason: low back pain (Intractable low back pain) History of present illness: Patient is a very pleasant 59-year-old female who is seen and examined the bedside urged to intractable back pain and difficulty with ambulation due to pain. Patient states she's been experiencing ongoing low back pain over the past 3 years which has significantly worsened over the past 6 months. She denies specific injury. She states her symptoms have been very debilitating. She states she has difficulty with getting off the couch or out of bed. She admits she will urinate or defecate while in bed or on the couch as she is unable to make it to the restroom. She had been following with Dr. Dudley in pain management for a number of years for pain control with medications. She did not feel further testing was being provided so she switched providers. She is currently following with Dr. Calle in neurology. She states she recently underwent EMG and EEG testing. She states he was planning to obtain a lumbar MRI prior to her admission to the hospital. She was brought to the emergency department yesterday via EMS due to her inability to ambulate due to her pain. X-ray imaging was taken which showed significant degenerative changes in her lower lumbar spine. She has not had a recent lumbar MRI. She states she has pain in the lumbar spine radiating to the bilateral buttocks greater on the left than the right. She denies specific weakness of the bilateral lower extremities. She states she had follow with Dr. Gomez previously multiple years ago and the possibility of surgical intervention was discussed at that time and that surgical intervention would be significant. She has tried to work through conservative treatment since that time. She states she tries to avoid narcotic pain medications. She will occasionally drink excessive alcohol to try to help deal with her pain. She had been drinking alcohol yesterday. Serum alcohol level in the emergency department was 174. She also tested positive for opioids, antidepressant, and marijuana with toxicology testing. She states this is not frequently and she may go a couple weeks in between having any alcohol. She is currently being seen by medicine. She denies having a pacemaker. She has not undergone injections with pain management. Patient is a current smoker and smokes approximately half pack of cigarettes per day. She has been started on a nicotine patch per medicine. During evaluation in the emergency department she was found to have severe hypokalemia. She has a medical history which includes hyperlipidemia, hypothyroidism, and depression. Past Medical History Past Medical History: Asthma, COPD, Hyperlipidemia, Thyroid Disorder Additional Past Medical History / Comment(s): herpes and scoliosis History of Any Multi-Drug Resistant Organisms: MRSA Year Discovered:: 04/26/2014 MDRO Source:: Groin Past Surgical History: Orthopedic Surgery Additional Past Surgical History / Comment(s): shoulder, arm, Past Psychological History: Depression Smoking Status: Former smoker Past Alcohol Use History: None Reported, Rare Past Drug Use History: Marijuana - Past Family History Father Family Medical History: Myocardial Infarction (MD) Additional Family Medical History / Comment(s): Father of a coronary thrombus at the age of 48yrs. Mother Family Medical History: No Reported History Additional Family Medical History / Comment(s): Mother is healthy and is 86 yrs old. Medications and Allergies Home Medications Medication Instructions Recorded Confirmed Type Loratadine [Claritin] 10 mg PO DAILY 04/26/14 04/25/19 History Atorvastatin [Lipitor] 40 mg PO HS 07/29/16 04/25/19 History Omeprazole [PriLOSEC] 20 mg PO AC-BID 07/29/16 04/25/19 History ARIPiprazole [Abilify] 10 mg PO DAILY 04/06/18 04/25/19 History Albuterol Inhaler [Ventolin Hfa 1 - 2 puff INHALATION RT-Q6H PRN 04/06/18 04/25/19 History Inhaler] DULoxetine HCL [Cymbalta] 60 mg PO DAILY 04/06/18 04/25/19 History Ergocalciferol [Vitamin D2] 50,000 unit PO TU 04/06/18 04/25/19 History Furosemide [Lasix] 20 mg PO DAILY 04/06/18 04/25/19 History Multivitamins, Thera [Multivitamin 1 tab PO DAILY 04/06/18 04/25/19 History (formulary)] traZODone HCL 50 mg PO HS PRN 04/06/18 04/25/19 History HYDROcodone/APAP 10-325MG [[place] 1 tab PO TID 04/25/19 04/25/19 History 10-325] Levothyroxine Sodium [Synthroid] 88 mcg PO DAILY 04/25/19 04/25/19 History Allergies Allergy/AdvReac Type Severity Reaction Status Date / Time No Known Allergies Allergy Verified 04/25/19 12:35 Physical Examination Physical exam: Patient is awake, alert, and oriented 3 Vital signs stable Good chest excursion with deep inspiration and expiration Examination of lumbar spine reveals skin is intact with no abrasions, lacer ations, or bruises; no erythema, purulence or signs of infection No significant pain with palpation over the lumbosacral spine Dorsiflexion, plantarflexion, and extensor hallucis longus positive sustained bilaterally Lower extremity strength 5/5 bilaterally Patient is able to lift legs independently in bed without significant difficulty She is uncomfortable with her legs fully extended and likes to lay with her hips and knees in flexion No lower extremity hyperreflexia bilaterally Negative Lasegue's test bilaterally No signs or symptoms of DVT; no calf pain No pain with internal and external rotation of the hips bilaterally Neurovascularly intact Results Pertinent studies: X-rays lumbosacral spine taken on 04/25/2019: Significant degenerative scoliosis with the apex curve centered at L3-4; L3-4 severe degenerative disc disease and lateral listhesis; L4-5 severe asymmetric degenerative disc disease; L5-S1 degenerative disc disease; no obvious sign of acute body compression fracture; straightening of normal lumbar lordosis; lower facet spondylosis - Labs Labs: Abnormal Lab Results - Last 24 Hours (Table) 04/26/19 Range/Units 07:58 BUN 19 H (7-17) mg/dL Creatinine 0.40 L (0.52-1.04) mg/dL Glucose 152 H (74-99) mg/dL Magnesium 1.5 L (1.6-2.3) mg/dL TSH <0.015 L (0.465-4.680) mIU/L H & H 04/25/19 Range/Units 08:23 Hgb 14.3 (11.4-16.0) gm/dL Hct 44.7 (34.0-46.0) % Result Diagrams: 04/25/19 08:23 04/26/19 07:58 Assessment and Plan Assessment: Assessment: Intractable low back pain Inability and difficulty with ambulation due to pain Degenerative scoliosis L3-4 lateral listhesis Lower extremity radiculopathy bilaterally greater on the left than the right L4-5 asymmetric severe degenerative disc disease L5-S1 degenerative disc disease Lumbosacral facet arthropathy Occasional alcohol abuse Nicotine dependence Current every day smoker Severe hypokalemia Hyperlipidemia Hypothyroidism Depression (1) Intractable low back pain Current Visit: Yes Status: Acute Code(s): M54.5 - LOW BACK PAIN SNOMED Code(s): 74435516799785683 (2) Degenerative scoliosis Current Visit: Yes Status: Acute Code(s): M41.50 - OTHER SECONDARY SCOLIOSIS, SITE UNSPECIFIED SNOMED Code(s): 143828947 (3) Spondylolisthesis, lumbar region Current Visit: Yes Status: Acute Code(s): M43.16 - SPONDYLOLISTHESIS, LUMBAR REGION SNOMED Code(s): 490236351367912 (4) Lumbar degenerative disc disease Current Visit: Yes Status: Acute Code(s): M51.36 - OTHER INTERVERTEBRAL DISC DEGENERATION, LUMBAR REGION SNOMED Code(s): 23240614 (5) DDD (degenerative disc disease), lumbosacral Current Visit: Yes Status: Acute Code(s): M51.37 - OTHER INTERVERTEBRAL DISC DEGENERATION, LUMBOSACRAL REGION SNOMED Code(s): 00382074 (6) Facet arthropathy, lumbosacral Current Visit: Yes Status: Acute Code(s): M47.817 - SPONDYLS W/O MYELOPATHY OR RADICULOPATHY, LUMBOSACR REGION SNOMED Code(s): 644585910 (7) Radiculopathy with lower extremity symptoms Current Visit: Yes Status: Acute Code(s): M54.10 - RADICULOPATHY, SITE UNSPECIFIED SNOMED Code(s): 97027125 (8) Alcohol abuse Current Visit: Yes Status: Acute Code(s): F10.10 - ALCOHOL ABUSE, UNCOMPLICATED SNOMED Code(s): 48242319 (9) Nicotine dependence Current Visit: Yes Status: Acute Code(s): F17.200 - NICOTINE DEPENDENCE, UNSPECIFIED, UNCOMPLICATED SNOMED Code(s): 87196369 (10) Current every day smoker Current Visit: Yes Status: Acute Code(s): F17.200 - NICOTINE DEPENDENCE, UNSPECIFIED, UNCOMPLICATED SNOMED Code(s): 946456389 (11) Hyperlipidemia Current Visit: Yes Status: Acute Code(s): E78.5 - HYPERLIPIDEMIA, UNSPECIFIED SNOMED Code(s): 94841038 (12) Hypothyroidism Current Visit: Yes Status: Acute Code(s): E03.9 - HYPOTHYROIDISM, UNSPECIFIED SNOMED Code(s): 89997885 (13) Depression Current Visit: Yes Status: Acute Code(s): F32.9 - MAJOR DEPRESSIVE DISORDER, SINGLE EPISODE, UNSPECIFIED SNOMED Code(s): 50091549 (14) Hypokalemia Current Visit: Yes Status: Acute Code(s): E87.6 - HYPOKALEMIA SNOMED Code(s): 79900781 (15) Unable to ambulate Current Visit: Yes Status: Acute Code(s): R26.2 - DIFFICULTY IN WALKING, NOT ELSEWHERE CLASSIFIED SNOMED Code(s): 402956834 Plan: Plan: 1. Patient has been discussed in detail with Dr. Chon Gomez. After reviewing imaging, physical examination patient, and further discussion with the patient, we will plan to obtain MRI of the lumbar spine for further evaluation. She has significant degenerative scoliosis. She has had ongoing intractable low back pain with difficulty with ambulating due to pain that has been significantly worsening over the past 6 months. She has followed with treatment in the outpatient setting with pain management with oral medications. She has not undergone any injections in her lumbar spine. She has not had a recent MRI of her lumbar spine. At this time we will plan to obtain the lumbar MRI and also consultation with pain management. Following the completion and interpretation of her MRI, we will plan to review this imaging and will follow up with with the patient to discuss her MRI results and treatment options. 2. Continue pain control medications as prescribed by medicine 3. Patient will continue to be seen by medicine for her other medical diagnoses including severe hypokalemia, nicotine dependence, hyperlipidemia, hypothyroidism, and depression. Time with Patient: Greater than 30 (Including obtaining history, physical examination, reviewing of imaging, and dictation.) <Hermelinda Gomez - Last Filed: 04/26/19 15:23> Physical Examination Osteopathic Statement: *. No significant issues noted on an osteopathic structural exam other than those noted in the History and Physical/Consult. Results - Labs Labs: Abnormal Lab Results - Last 24 Hours (Table) 04/26/19 Range/Units 07:58 BUN 19 H (7-17) mg/dL Creatinine 0.40 L (0.52-1.04) mg/dL Glucose 152 H (74-99) mg/dL Magnesium 1.5 L (1.6-2.3) mg/dL TSH <0.015 L (0.465-4.680) mIU/L H & H 04/25/19 Range/Units 08:23 Hgb 14.3 (11.4-16.0) gm/dL Hct 44.7 (34.0-46.0) % Result Diagrams: 04/25/19 08:23 04/26/19 07:58 - Diagnostic results Lumbar MRI with contrast: report reviewed, image reviewed (Imaging of the lumbar spine MRI is reviewed. I also reviewed x-rays the lumbar spine. She has degenerative scoliosis with spondylolisthesis L3 4 severe disc degeneration L3 4 L4 5. There is severe central and bilateral foraminal stenosis L3 4 and not foraminal stenosis L4 5.) Assessment and Plan Plan: I reviewed the images and saw the patient today at bedside. I discussed the case with the PA and agree with the above. The patient has severe pain in her lower back with her lower extremity radiculopathy correlates well with her imaging. She has severe spinal stenosis with spondylolisthesis L3 4 and significant stenosis at L4 5 with degenerative scoliosis and her lumbar spine. She has been having worsening symptoms over the past several months. She has been undergoing conservative treatment with Dr. Calle but has not had significant benefit despite some conservative care. She has not had interventional pain management and I think it is appropriate for her to pursue interventional pain management at this point. I think that she is a candidate for surgical intervention for her lumbar spine. Her procedure would be likely decompression and fusion L3 4 and L4 5 but may possibly have to extend the fusion to address the entire curvature. Her most severe issues are certainly L3 4 with L4 5 and she may have some benefit with addressing those 2 levels alone. I do not plan any surgical intervention on this admission to the hospital. I think that she needs to exhaust all conservative treatment including interventional pain management before considering surgical intervention. I discussed this with her at bedside today and we can plan on following her up on an outpatient basis after she is able to be discharged from the hospital with conservative care.
[2019-04-26 15:16] VITALS: BMI 17.7
--- NOTE | 2019-04-26 16:02 | MR ---
EXAMINATION TYPE: MR lumbar spine wo con DATE OF EXAM: 04/26/2019 COMPARISON: Plain film 04/25/2019 HISTORY: Degenerative scoliosis/intractable low back pain TECHNIQUE: Multiplanar, multisequence images of the lumbar spine were acquired. L1-L2: Normal disc appearance without desiccation. No herniation, protrusion or disc bulging. No ca nal stenosis is present. Foramina are patent bilaterally. L2-L3: Posterior broad-based disc bulge causes mild anterior mass effect on the thecal sac. No signif icant foraminal encroachment. No significant spinal stenosis. L3-L4: There is severe spinal stenosis. Facet arthropathy changes present with hypertrophic change of the ligamentum flavum, noted greater on the left. Listhesis contributes to cause bilateral foraminal encroachment greater on the right. No evident disc herniation. L4-L5: Posterior extension endplate disc complex causes mild anterior mass effect on the thecal sac. Foraminal encroachment present in the left due to circumferential extension endplate disc complex. No significant spinal stenosis. L5-S1: Posterior broad-based disc bulge causes mild anterior mass effect on the thecal sac. Circumfer ential extension endplate disc complex encroaches on the left neural foramen. No significant spinal s tenosis. Lumbar segments are intact. No paraspinal masses are identified. Conus medullaris has a normal appe arance. There is a retrolisthesis grade 1 L5-S1, L4-5, anterolisthesis grade 1 L3-4. Loss of disc hei ght and signal is greatest at L4-5, L3-4 with endplate discogenic marrow signal changes and to lesser extent at L5-S1. There is a spinal curvature. Probable cortical cyst associated with the upper pole of the left kidney measuring 2 cm. IMPRESSION: Spinal stenosis is significant at L3-4. Spinal listhesis. Multilevel degenerative disc disease, facet arthropathy and foraminal encroachment. Scoliosis.
[2019-04-26 16:44] LABS: Folate, Serum 18.6 ng/mL
[2019-04-26] MEDS: DEXTROSE 5%-0.9% NACL 1,000 ML IV SCH (17:35)
--- NOTE | 2019-04-26 19:06 | P.PAINCN ---
History of Present Illness - Reason for Consult Consult date: 04/26/19 - History of Present Illness this is 59 years old female, who was admitted to [facility] secondary to severe intractable, and she is not able to ambulate, she reported that the pain started more than 5 years ago and intensity of the pain increased over the last few months, she denies any initiating event,and she reported that intensity of the pain increasedregularly and currently she met admitted to leave her bed because of the intensity of the pain, she was managed as an outpatient with pain medication, which is not helping to control her pain, she reported that the pain is localized in the low back area with radiation to both buttocks and to the posterior aspect of her lower extremity, she reported that she was trying to control her pain by drinking alcohol and urine drug screen was positive for opiate and alcohol, and antidepressant and marijuana Past Medical History Past Medical History: Asthma, COPD, Hyperlipidemia, Thyroid Disorder Additional Past Medical History / Comment(s): herpes and scoliosis History of Any Multi-Drug Resistant Organisms: MRSA Year Discovered:: 04/26/2014 MDRO Source:: Groin Past Surgical History: Orthopedic Surgery Additional Past Surgical History / Comment(s): shoulder, arm, Past Psychological History: Depression Smoking Status: Former smoker Past Alcohol Use History: None Reported, Rare Past Drug Use History: Marijuana - Past Family History Father Family Medical History: Myocardial Infarction ([place]) Additional Family Medical History / Comment(s): Father of a coronary thrombus at the age of 48yrs. Mother Family Medical History: No Reported History Additional Family Medical History / Comment(s): Mother is healthy and is 86 yrs old. Medications and Allergies Home Medications Medication Instructions Recorded Confirmed Type Loratadine [Claritin] 10 mg PO DAILY 04/26/14 04/25/19 History Atorvastatin [Lipitor] 40 mg PO HS 07/29/16 04/25/19 History Omeprazole [PriLOSEC] 20 mg PO AC-BID 07/29/16 04/25/19 History ARIPiprazole [Abilify] 10 mg PO DAILY 04/06/18 04/25/19 History Albuterol Inhaler [Ventolin Hfa 1 - 2 puff INHALATION RT-Q6H PRN 04/06/18 04/25/19 History Inhaler] DULoxetine HCL [Cymbalta] 60 mg PO DAILY 04/06/18 04/25/19 History Ergocalciferol [Vitamin D2] 50,000 unit PO TU 04/06/18 04/25/19 History Furosemide [Lasix] 20 mg PO DAILY 04/06/18 04/25/19 History Multivitamins, Thera [Multivitamin 1 tab PO DAILY 04/06/18 04/25/19 History (formulary)] RX: traZODone HCL 50 mg PO HS PRN 04/06/18 04/25/19 History HYDROcodone/APAP 10-325MG [[place] 1 tab PO TID 04/25/19 04/25/19 History 10-325] Levothyroxine Sodium [Synthroid] 88 mcg PO DAILY 04/25/19 04/25/19 History Allergies Allergy/AdvReac Type Severity Reaction Status Date / Time No Known Allergies Allergy Verified 04/25/19 12:35 Physical Exam Vitals: Vital Signs Temp Pulse Resp BP Pulse Ox 04/26/19 13:16 98.5 F 90 15 163/100 96 04/26/19 11:58 146/86 04/26/19 09:52 88 178/94 04/26/19 06:20 97.7 F 88 17 172/88 94 L 04/26/19 06:00 87 16 172/100 93 L 04/26/19 05:09 97.5 F L 91 16 189/99 96 04/25/19 23:30 80 168/90 04/25/19 21:22 97.5 F L 90 16 178/104 95 Intake and Output 04/26/19 04/26/19 04/26/19 06:59 14:59 22:59 Intake Total 500 490 Balance 500 490 Intake: Oral 500 490 Other: Voiding Method Diaper Bedpan Bedpan Diaper Diaper # Voids 2 3 Weight 54.431 kg Physical Examinations : -Constitutiona : Cooperative , not in acute distress .she was lying in bed and not able to ambulate -HEENT : nech : supple , no Lymphadenopathy , normal thyroid size . : eyes : no ptosis , no icterus, no photophobia . : ENT : normal of hearing , normal oropharynx , no Thrush . - Respiratory : Chest clear to auscultations Bilaterally , no wheezing , no Rhonchi . - Cardiovascula : regular rate and rhythem , S1 , S2 , no S3 , no S4. - Gastrointestina : abdomen soft no tenderness , bowel sounds , no organomegally . - Genitourinary : Defferred . - neurologic : Cranial nerve II to XII intact , no focal neurological deffecit . -psychatric : alert , oriented X 3 , appropriate affect , intact judgment and insight . -Lymphatic : no Lymphadenopathy . - musculoskeltal : Lumber spine moter stegnth lower extremities ,thigh and legs 4-5/5 Right side , 4-5/5 Left side deep tendon reflexes : normal Knee Jerk , normal ankle Jerk lumber facet Loading Test =positive Right , positive Left Range of motion of the lumbar spine Flexion 30 degrees, extension 10 degrees strait leg raising test = positive at 30 degree Fabere test= positive Right , and positive LT . tenderness over the Sacroiliac joint on the Right , and Left sides . Results CBC & Chem 7: 04/25/19 08:23 04/26/19 07:58 Labs: Abnormal Lab Results - Last 24 Hours (Table) 04/26/19 Range/Units 07:58 BUN 19 H (7-17) mg/dL Creatinine 0.40 L (0.52-1.04) mg/dL Glucose 152 H (74-99) mg/dL Magnesium 1.5 L (1.6-2.3) mg/dL TSH <0.015 L (0.465-4.680) mIU/L Comments: MRI of the lumbar spine done at [facility] 04/26/2019 severe lumbar spinal stenosis , foraminal stenosis and facet arthropathy and retrolisthesis Assessment and Plan Plan: assessment and plan=intractable low back pain. Lumbar spinal stenosis. Lumbar spondylosis with lumbar facet arthropathy. Lumbar radiculopathy. alcohol abuse. patient will be good candidate to have lumbar epidural steroid injections under fluoroscopy guidance will be done tomorrow morning. We'll order PT INR, PTT to check liver function because patient has a history of EtOH abuse, and she received heparin . Procedure risk and benefits and alternatives discussed with the patient and she agreed with the preceding Time with Patient: Greater than 30 PQRS Measure Charge Sheet PQRS Narrative: Smoking Status Former smoker Blood Pressure [Right Arm] 163/100 Blood Pressure 163/99 Pain Intensity [Lower Back] 0 Pain Intensity 0 Pain Scale Used Numeric (1 - 10) Scale Used Numeric (1 - 10) Home Medications: Ambulatory Orders Loratadine [Claritin] 10 mg PO DAILY 04/26/14 Atorvastatin [Lipitor] 40 mg PO HS 07/29/16 Omeprazole [PriLOSEC] 20 mg PO AC-BID 07/29/16 ARIPiprazole [Abilify] 10 mg PO DAILY 04/06/18 Albuterol Inhaler [Ventolin Hfa Inhaler] 1 - 2 puff INHALATION RT-Q6H PRN 04/06/18 DULoxetine HCL [Cymbalta] 60 mg PO DAILY 04/06/18 Ergocalciferol [Vitamin D2] 50,000 unit PO TU 04/06/18 Furosemide [Lasix] 20 mg PO DAILY 04/06/18 Multivitamins, Thera [Multivitamin (formulary)] 1 tab PO DAILY 04/06/18 RX: traZODone HCL 50 mg PO HS PRN 04/06/18 HYDROcodone/APAP 10-325MG [[place] 10-325] 1 tab PO TID 04/25/19 Levothyroxine Sodium [Synthroid] 88 mcg PO DAILY 04/25/19
[2019-04-26] MEDS: FAMOTIDINE 20 MG TAB PO SCH (20:15)
[2019-04-26] MEDS: ATORVASTATIN 40 MG TAB PO SCH (20:16)
[2019-04-27] MEDS: DEXAMETHASONE SOD PHOSPHATE 4 MG/ML 1 ML VIAL IV SCH (04:09)
[2019-04-27] MEDS: LEVOTHYROXINE 88 MCG TAB PO SCH (05:24)
--- NOTE | 2019-04-27 07:25 | P.PN ---
Subjective This is a pleasant 59 years old female w no signs or symptoms of alcohol withdrawal. with past medical history of asthma/COPD, hyperlipidemia, hypot hyroidism, depression. She follows up with Dr. Calvin Calle the neurologist and she is recently prescribed Jenkinjones 10 mg. She is a patient of Dr. darnell. pt states she came to hospital because of difficulty walking , she has long history of low back pain radiating to both legs/ankles and she follows up with , she is on norco 10-325 mg for this reason, over the last six months she was walking depending on the help of someone to lean on , and could walk small distance ( across the room ) as pt describes. over the last one week it became more difficult for her to walk, she is complaining from significant low back pain and on her pelvis when she walks today when EMS she was in her feces and urine , she explains that because she was drinking vodka, she drinks about twice per week and she could not tell the amount exactly , also she smokes cigarettes b about 1/2 PPD. pt is counseled and she agrees with nicotine patch. Vitals looks stable. Labs CBC and BMP were unremarkable except for low potassium at 2.8, creatinine and sodium are within normal limits, liver enzymes not elevated. Urine drug screen is positive for opioids, tricyclic antidepressants and marijuana. Serum alcohol level was 174. 04/26/2019 Patient presents with low back pain radiating to both legs and ankles has been going on for months associated with difficulty walking which get worse over the last week, she still complaining of from low back pain and needing pain medication. Vital signs stable and blood pressure on the high side and this morning 172/88, Norvasc has been added and going to increase the dose to 5 mg daily. Potassium was replaced and went on to follow-up the level. Follow-up magnesium level as well. Lumbar x-ray: Subluxation of L3 to the left of L4 with narrowing of the disc space from L2 down to L5. Patient is currently on Decadron, pain medication and spine orthopedic team have been consulted. no signs of alcohol withdrawal this morning 04/27/2019 Patient still complaining of from similar lower back pain with radiculopathy. Lumbar MRI: Significant spinal stenosis at L3-L4 with multilevel degenerative disc disease and facet arthropathy. Patient has been evaluated by pain management service yesterday and their input is appreciated, patient is going for possible epidural injection today. Subcutaneous Heparin was discontinued yesterday. Her blood pressure still elevated 168/99 today, we are going to increase her Norvasc to 10 mg daily, this could be also due to steroid effect and she is currently on the 4 Mg Every 6 Hours, Recommend Decadron Taper upon Discharge. Continue with Pepcid. Labs from Today Are Still Pending. Her CIWA score was 8 yesterday, however later on improved to 2 and 0. Patient might benefit from ECF for rehab Objective - Vital Signs Vital signs: Vital Signs Temp 97.3 F L 04/27/19 06:01 Pulse 83 04/27/19 06:01 Resp 16 04/27/19 06:01 BP 168/99 04/27/19 06:01 Pulse Ox 94 L 04/27/19 06:01 Intake & Output 04/26/19 04/27/19 04/27/19 18:59 06:59 18:59 Intake Total 490 Balance 490 Weight 54.431 kg Intake: Oral 490 Other: Voiding Method Bedpan Bedpan Diaper Diaper # Voids 3 3 - Exam GENERAL: The patient is alert and oriented x3, not in any acute distress. Well developed, well nourished. HEENT: Pupils are round and equally reacting to light. EOMI. No scleral icterus. No conjunctival pallor. Normocephalic, atraumatic. No pharyngeal erythema. No thyromegaly. CARDIOVASCULAR: S1 and S2 present. No murmurs, rubs, or gallops. PULMONARY: Chest is clear to auscultation, no wheezing or crackles. ABDOMEN: Soft, nontender, nondistended, normoactive bowel sounds. No palpable organomegaly. MUSCULOSKELETAL: No joint swelling or deformity. EXTREMITIES: No cyanosis, clubbing, or pedal edema. -NEUROLOGICAL: cranial nn are grossly intact. strength in both lower ext: mild weakness bilaterally, sensation is intact, meningeal signs are absent SKIN: No rashes. No petechiae - Labs CBC & Chem 7: 04/25/19 08:23 04/26/19 07:58 Labs: Abnormal Lab Results - Last 24 Hours (Table) 04/26/19 Range/Units 07:58 BUN 19 H (7-17) mg/dL Creatinine 0.40 L (0.52-1.04) mg/dL Glucose 152 H (74-99) mg/dL Magnesium 1.5 L (1.6-2.3) mg/dL TSH <0.015 L (0.465-4.680) mIU/L Assessment and Plan Assessment: -ongoing chronic low back pain radiating to both ankles , suspicious for sciatica , with chronic difficulty walking and recent worsening . with Lumbar x- ray showing Subluxation of L3 to the left of L4 with narrowing of the disc space from L2 down to L5, lower back pain with radiculopathy. Lumbar MRI: Significant spinal stenosis at L3-L4 with multilevel degenerative disc disease and facet arthropathy. -Scoliosis -Alcohol abuse, and alcohol withdrawal -severe Hypokalemia, improved -nicotine dependance -Asthma/COPD, not an active issue -Hyperlipidemia -Hypothyroidism -Depression Plan: this is a pleasant 59 yo F who presests with alcohol abuse , risk of alcohol withdrawal, also sever hypokalemia . Continue replacing electrolytes and potassium, continue with calcium and vitamin D, follow-up recommendation by orthopedic and pain management service teams. Continue with pain management, CIWA protocol and vitamins Labs and medication were reviewed.. Continue same treatment. Continue with symptomatic treatment. Resume home medication. Monitor lytes and vitals. DVT and GI prophylaxis. Further recommendations of the clinical course of the patient DVT prophylaxis: Hold Subcutaneous heparin for patient is going for epidural injection GI Prophylaxis: Pepcid PT/OT: Patient is going for subacute rehab Prognosis is guarded
[2019-04-27] MEDS: NICOTINE 21MG/24HR PATCH TRANSDERM SCH (07:58)
[2019-04-27] MEDS: HYDROcodone/APAP 10-325MG 1 EACH TAB PO SCH ×3 (07:58→22:30)
[2019-04-27] MEDS: FAMOTIDINE 20 MG TAB PO SCH ×2 (07:59→22:30)
[2019-04-27] MEDS: DULoxetine HCL 60 MG CAPSULE.DR PO SCH (07:59)
[2019-04-27] MEDS: FUROSEMIDE 20 MG TAB PO SCH (07:59)
[2019-04-27] MEDS: MULTIVITAMINS, THERA 1 EACH TAB PO SCH (07:59)
[2019-04-27] MEDS: amLODIPine 10 MG TAB PO SCH (07:59)
[2019-04-27] MEDS: THIAMINE 100 MG TAB PO SCH ×2 (07:59→16:55)
[2019-04-27] MEDS: ARIPiprazole 10 MG TAB PO SCH (08:03)
[2019-04-27] MEDS: DEXAMETHASONE 4 MG TAB PO SCH ×4 (08:03→22:30)
[2019-04-27 08:12] LABS: INR 0.9 (<1.2); Partial Thromboplastin Time 23.5 sec (22.0-30.0); Prothrombin Time 9.6 sec (9.0-12.0)
[2019-04-27 08:15] LABS: ALT 21 U/L (4-34); AST 21 U/L (14-36); African American GFR (CKD) >90 (>60 ml/min/1.73 sqM); Albumin 3.6 g/dL (3.5-5.0); Alkaline Phosphatase 93 U/L (38-126); Anion Gap 6 mmol/L; Bilirubin, Delta 0.2 mg/dL (0.0-0.2); Bilirubin,Unconjugated 0.4 mg/dL (0.0-1.1); Blood Urea Nitrogen 18 mg/dL (7-17); Calcium 9.8 mg/dL (8.4-10.2); Carbon Dioxide 28 mmol/L (22-30); Chloride 103 mmol/L (98-107); Glucose 140 mg/dL (74-99); Magnesium 1.5 mg/dL (1.6-2.3); Non-African American GFR(CKD) >90 (>60 ml/min/1.73 sqM); Potassium 3.1 mmol/L (3.5-5.1); Sodium 137 mmol/L (137-145); Total Bilirubin 0.6 mg/dL (0.2-1.3); Total Protein 6.4 g/dL (6.3-8.2)
[2019-04-27] MEDS: LIDOCAINE 5% PATCH TOPICAL SCH (09:32)
[2019-04-27] MEDS ORDERED: LACTATED RINGERS 1,000 ML IV ONE (10:44)
[2019-04-27] MEDS ORDERED: Potassium Replacement Protocol 1 EACH MISC MISCELLANE PRN (10:48)
--- NOTE | 2019-04-27 11:34 | P.PCN ---
Date of Procedure: 04/27/19 Procedure(s) Performed: PREOPERATIVE DIAGNOSIS: 1- Lumbar spinal stenosis, lumbar radicular pain POSTOPERATIVE DIAGNOSIS: 1-same PROCEDURE 1. Lumbar epidural steroid injection under fluoroscopic guidance at the L4-5 level using a left paramedian approach 2. Lumbar epidurogram. ANESTHESIA: Local with 1% lidocaine 3 ml, no IV sedation was used Fluoroscopy was used for the procedure and images were saved in the radiology portion of the chart. EBL: Minimal PROCEDURE INDICATION: The patient with low back pain and radiculitis symptoms unresponsive to conservative treatment. Fluoroscopy was used to optimize visualization of the needle placement and to maximize safety. PROCEDURE DESCRIPTION / TECHNIQUE: The patient was seen and identified in the preoperative area. Risks, benefits, complications including but not limited to infections ,bleeding ,allergic reaction to the medications ,nerve damage and incomplete pain relief , and alternatives were discussed with the patient. The patient agreed to proceed with the procedure and signed the consent. IV was started, and vital signs were stable. Patient was taken to the OR and time out was completed. The patient was placed in the prone position on procedure table and a pillow was placed under the abdomen to reduce lumbar lordosis. The lumbosacral area was prepped and draped in the usual sterile fashion. Vitals were closely monitored during the procedure. Using anterior-posterior fluoroscopy, the L4-5 interlaminar space was identified and the skin over this site was marked and then infiltrated with 1% lidocaine subcutaneously. Subsequently, a 20-gauge 3.5" Tuohy epidural needle was inserted and advanced toward the epidural space using the loss of resistance technique and guided by AP and lateral/ oblique fluoroscopy. The correct needle position in the epidural space was verified with the injection of 2 mL of the water soluble contrast dye Isovue 200 contrast under live fluoroscopy, observing an excellent epidurogram. Then, after negative aspiration for blood and CSF and in the absence of paresthesias, a 5 ml mixture containing 80 mg of Depo-medrol , 3 ml of preservative free Normal Saline, and 1 ml of preservative free lidocaine 1% solution was injected and a washout epidurogram was seen. Needle was withdrawn intact, skin was cleansed, and bandages were applied. COMPLICATIONS: None DISPOSITION / PLANS: The patient was placed in a supine position and transferred back to her hospital room in a stable condition for observation. There was no evidence of lower extremity motor or sensory deficit after the procedure. The patient will schedule a follow up in the clinic in 2-4 weeks.
--- NOTE | 2019-04-27 12:23 | FL ---
EXAMINATION TYPE: FL guided pain mgmt statistic DATE OF EXAM: 04/27/2019 CLINICAL HISTORY: Low back pain. TECHNIQUE: Fluoroscopy. COMPARISON: None. FINDINGS: Fluoroscopic guidance was provided during pain relief procedure performed by Dr. Hernandes. A t otal of 5 seconds of fluoroscopic time was utilized during the procedure and 3 spot images are acquir ed. Images acquired shows needle localization of the lumbar spine. IMPRESSION: As Above.
[2019-04-27] MEDS: hydrALAZINE HCL 25 MG TAB PO PRN (12:45)
[2019-04-27] MEDS: DEXTROSE 5%-0.9% NACL 1,000 ML IV SCH (12:46)
[2019-04-27] MEDS: ATORVASTATIN 40 MG TAB PO SCH (22:30)
[2019-04-28] MEDS: LEVOTHYROXINE 88 MCG TAB PO SCH (05:49)
[2019-04-28] MEDS: MORPHINE SULFATE 2 MG/ML SYRINGE IVP PRN ×2 (05:53→11:32)
[2019-04-28] MEDS: hydrALAZINE HCL 25 MG TAB PO PRN (05:53)
[2019-04-28] MEDS: LIDOCAINE 5% PATCH TOPICAL SCH (07:48)
[2019-04-28] MEDS: THIAMINE 100 MG TAB PO SCH ×2 (08:48→17:09)
[2019-04-28] MEDS: FAMOTIDINE 20 MG TAB PO SCH ×2 (08:49→19:54)
[2019-04-28] MEDS: FUROSEMIDE 20 MG TAB PO SCH (08:49)
[2019-04-28] MEDS: HYDROcodone/APAP 10-325MG 1 EACH TAB PO SCH ×3 (08:50→21:18)
[2019-04-28] MEDS: DEXAMETHASONE 4 MG TAB PO SCH ×4 (08:53→21:19)
[2019-04-28] MEDS: amLODIPine 10 MG TAB PO SCH (08:53)
[2019-04-28] MEDS: DULoxetine HCL 60 MG CAPSULE.DR PO SCH (08:53)
[2019-04-28] MEDS: ARIPiprazole 10 MG TAB PO SCH (08:54)
[2019-04-28] MEDS: NICOTINE 21MG/24HR PATCH TRANSDERM SCH (08:55)
--- NOTE | 2019-04-28 08:59 | P.PN ---
Progress Note - Text Progress Note Date: 04/28/19 Orthopedic spine: History of present illness: Patient is a very pleasant 59-year-old female who is seen and examined the bedside for follow-up evaluation in regards to intractable back pain and difficulty with ambulation due to pain. Since being seen and examined on states she has had an MRI of the lumbar spine. Patient states she's been experiencing ongoing low back pain over the past 3 years which has significantly worsened over the past 6 months. She denies specific injury. She states her symptoms have been very debilitating. She states she has difficulty with getting off the couch or out of bed. She admits she will urinate or defecate while in bed or on the couch as she is unable to make it to the restroom. She had been following with Dr. Dudley in pain management for a number of years for pain control with medications. She did not feel further testing was being provided so she switched providers. She is currently following with Dr. Calle in neurology. She states she recently underwent EMG and EEG testing. She states he was planning to obtain a lumbar MRI prior to her admission to the hospital. She was brought to the emergency department yesterday via EMS due to her inability to ambulate due to her pain. X-ray imaging was taken which showed significant degenerative changes in her lower lumbar spine. She states she has pain in the lumbar spine radiating to the bilateral buttocks greater on the left than the right. She denies specific weakness of the bilateral lower extremities. She states she had follow with Dr. Gomez previously multiple years ago and the possibility of surgical intervention was discussed at that time and that surgical intervention would be significant. She has tried to work through conservative treatment since that time. She states she tries to avoid narcotic pain medications. During her evaluation the emergency department she tested positive for opioids, antidepressant, and marijuana with toxicology testing. She is currently being seen by medicine. Consultation had been placed with pain management. She was seen and examined by pain management. She underwent an epidural injection at L4-5 yesterday. She has had some mild improvement of her symptoms. She is planning to follow-up with him in the outpatient setting. She is planning for discharge, hopefully today, to a rehabilitation facility. Patient is a current smoker and smokes approximately half pack of cigarettes per day. She has been started on a nicotine patch per medicine. During evaluation in the emergency department she was found to have severe hypokalemia. She has a medical history which includes hyperlipidemia, hypothyroidism, and depression. Physical exam: Patient is awake, alert, and oriented 3 Vital signs stable Good chest excursion with deep inspiration and expiration Examination of lumbar spine reveals skin is intact with no abrasions, lacerations, or bruises; no erythema, purulence or signs of infection No significant pain with palpation over the lumbosacral spine Dorsiflexion, plantarflexion, and extensor hallucis longus positive sustained bilaterally Lower extremity strength 5/5 bilaterally Patient is able to lift legs independently in bed without significant difficulty She is uncomfortable with her legs fully extended and likes to lay with her hips and knees in flexion No lower extremity hyperreflexia bilaterally Negative Lasegue's test bilaterally No signs or symptoms of DVT; no calf pain No pain with internal and external rotation of the hips bilaterally Neurovascularly intact Pertinent studies: MRI of the lumbar spine taken on 04/26/2019: Degenerative scoliosis; L2-3 posterior broad-based disc bulge; L3-4 spondylolisthesis, lateral listhesis, degenerative disc disease, facet arthropathy, and ligament of flavum hypertrophy resulting in severe spinal canal stenosis and bilateral neuroforaminal encroachment; L4-5 retrolisthesis, degenerative disc disease, posterior extension of an endplate disc osteophyte complex with left neuroforaminal stenosis; L5-S1 retrolisthesis, degenerative disc disease, and posterior broad- based disc bulging with some encroachment of the left neural foramen X-rays lumbosacral spine taken on 04/25/2019: Significant degenerative scoliosis with the apex curve centered at L3-4; L3-4 severe degenerative disc disease and lateral listhesis; L4-5 severe asymmetric degenerative disc disease; L5-S1 degenerative disc disease; no obvious sign of acute body compression fracture; straightening of normal lumbar lordosis; lower facet spondylosis Assessment: Intractable low back pain Inability and difficulty with ambulation due to pain Degenerative scoliosis L3-4 lateral listhesis L3-4 severe spinal canal stenosis L4-5 left neuroforaminal stenosis L4-5 retrolisthesis Lower extremity radiculopathy bilaterally greater on the left than the right L4-5 asymmetric severe degenerative disc disease L5-S1 degenerative disc disease L5-S1 retrolisthesis Lumbosacral facet arthropathy Occasional alcohol abuse Nicotine dependence Current every day smoker Severe hypokalemia Hyperlipidemia Hypothyroidism Depression Plan: 1. Patient has been discussed in detail with Dr. Chon Gomez. After reviewing imaging, physical examination patient, and further discussion with the patient, we will plan to continue with conservative treatment at this time. She does have significant changes at her lumbosacral spine. She was seen and examined by pain management and underwent an epidural injection yesterday with some slight improvement of her symptoms already. She will plan to continue following with pain management in the outpatient setting for further treatment evaluation. She is planning for discharge to a rehabilitation facility at the time of discharge. She would like to work on increasing her strength and mobility. She would like to exhaust conservative treatment options before discussing the possibility of surgical intervention. At this time, patient will be cleared for discharge from an orthopedic spine standpoint. Following discharge, patient may follow-up with Kirk Galeano PA-C or Dr. Chon Gomez at [facility] in approximately 4 weeks for further evaluation in the outpatient setting. 2. Continue pain control medications as prescribed by medicine 3. Patient will continue to be seen by medicine for her other medical diagnoses including severe hypokalemia, nicotine dependence, hyperlipidemia, hypothyroidism, and depression 4. Patient will continue seeing them by pain management
[2019-04-28 09:29] LABS: African American GFR (CKD) >90 (>60 ml/min/1.73 sqM); Anion Gap 7 mmol/L; Blood Urea Nitrogen 17 mg/dL (7-17); Calcium 10.2 mg/dL (8.4-10.2); Carbon Dioxide 33 mmol/L (22-30); Chloride 93 mmol/L (98-107); Glucose 173 mg/dL (74-99); Magnesium 1.4 mg/dL (1.6-2.3); Non-African American GFR(CKD) >90 (>60 ml/min/1.73 sqM); Potassium 3.4 mmol/L (3.5-5.1); Sodium 133 mmol/L (137-145)
[2019-04-28] MEDS: MULTIVITAMINS, THERA 1 EACH TAB PO SCH (10:28)
[2019-04-28] MEDS: DEXTROSE 5%-0.9% NACL 1,000 ML IV SCH (11:35)
[2019-04-28] MEDS: MAGNESIUM SULFATE-D5W PMX 1 GM in DEXTROSE/WATER 1 100ML.BAG IVPB SCH ×3 (14:01→17:09)
[2019-04-28] MEDS ORDERED: HYDROcodone/APAP 10-325MG 1 EACH TAB PO PRN (14:45)
[2019-04-28 16:53] LABS: Appearance,Urine Clear (Clear); Bacteria,Urine Occasional /hpf; Bilirubin,Urine Negative (Negative); Blood,Urine Negative (Negative); Budding Yeast,Urine Occasional /hpf; Color,Urine Light Yellow; Glucose,Urine (UA) Negative (Negative); Ketones,Urine Negative (Negative); Leukocyte Esterase,Urine Large (Negative); Mucus,Urine Rare /hpf; Nitrite,Urine Negative (Negative); PH, Urine 7.5 (5.0-8.0); Protein,Urine Negative (Negative); RBC,Urine 3 /hpf (0-5); Specific Gravity,Urine 1.004 (1.001-1.035); Squamous Epithelial Cell,Urine <1 /hpf (0-4); Urobilinogen,Urine <2.0 mg/dL (<2.0); WBC,Urine 32 /hpf (0-5)
[2019-04-28] MEDS: ATORVASTATIN 40 MG TAB PO SCH (19:54)
[2019-04-29 05:22] VITALS: BP 159/97; PULSE 70; RESP 20; TEMP 98
[2019-04-29] MEDS: DEXTROSE 5%-0.9% NACL 1,000 ML IV SCH (06:15)
[2019-04-29] MEDS: ACETAMINOPHEN TAB 325 MG TAB PO PRN (06:17)
[2019-04-29] MEDS: LEVOTHYROXINE 88 MCG TAB PO SCH (06:17)
[2019-04-29] MEDS: MULTIVITAMINS, THERA 1 EACH TAB PO SCH (08:06)
[2019-04-29] MEDS: DULoxetine HCL 60 MG CAPSULE.DR PO SCH (08:06)
[2019-04-29] MEDS: ARIPiprazole 10 MG TAB PO SCH (08:06)
[2019-04-29] MEDS: FAMOTIDINE 20 MG TAB PO SCH (08:06)
[2019-04-29] MEDS: FUROSEMIDE 20 MG TAB PO SCH (08:06)
[2019-04-29] MEDS: amLODIPine 10 MG TAB PO SCH (08:06)
[2019-04-29] MEDS: HYDROcodone/APAP 10-325MG 1 EACH TAB PO SCH (08:06)
[2019-04-29] MEDS: DEXAMETHASONE 4 MG TAB PO SCH ×2 (08:06→12:00)
[2019-04-29] MEDS: THIAMINE 100 MG TAB PO SCH (08:06)
[2019-04-29] MEDS: NICOTINE 21MG/24HR PATCH TRANSDERM SCH (08:06)
[2019-04-29] MEDS: LIDOCAINE 5% PATCH TOPICAL SCH (08:07)
--- NOTE | 2019-04-29 10:40 | P.PN ---
Subjective Progress Note Date: 04/28/19 59 years old female w no signs or symptoms of alcohol withdrawal. with past medical history of asthma/COPD, hyperlipidemia, hypothyroidism, depression. She follows up with Dr. Calvin Calle the neurologist and she is recently prescribed [place] 10 mg. She is a patient of Dr. darnell. pt states she came to hospital because of difficulty walking , she has long history of low back pain radiating to both legs/ankles and she follows up with , she is on norco 10-325 mg for this reason, over the last six months she was walking depending on the help of someone to lean on , and could walk small distance ( across the room ) as pt describes. over the last one week it became more difficult for her to walk, she is complaining from significant low back pain and on her pelvis when she walks today when EMS she was in her feces and urine , she explains that because she was drinking vodka, she drinks about twice per week and she could not tell the amount exactly , also she smokes cigarettes b about 1/2 PPD. pt is counseled and she agrees with nicotine patch. Patient is seen and evaluated in room at bedside; denies any further uncontrolled pain; continues to rely on IV morphine for pain control; patient did has been scheduled for transfer to skilled rehab and plan to continue follow-up with pain control as outpatient; she needs to be off of IV narcotics prior to except and sat skilled rehab; we will discontinue IV morphine and start patient on home dose of [place] and monitor closely Possible discharge in next 24 hours Objective - Vital Signs Vital signs: Vital Signs Temp 97.8 F 04/28/19 12:29 Pulse 82 04/28/19 12:29 Resp 18 04/28/19 12:29 BP 170/91 04/28/19 12:29 Pulse Ox 95 04/28/19 06:50 Intake & Output 04/27/19 04/28/19 04/28/19 18:59 06:59 18:59 Intake Total 620 600 Balance 620 600 Intake: IV 300 Oral 320 600 Other: Voiding Method Bedpan Bedpan # Voids 2 1 4 - Exam GENERAL: The patient is alert and oriented x3, not in any acute distress. Well developed, well nourished. HEENT: Pupils are round and equally reacting to light. EOMI. No scleral icterus. No conjunctival pallor. Normocephalic, atraumatic. No pharyngeal erythema. No thyromegaly. CARDIOVASCULAR: S1 and S2 present. No murmurs, rubs, or gallops. PULMONARY: Chest is clear to auscultation, no wheezing or crackles. ABDOMEN: Soft, nontender, nondistended, normoactive bowel sounds. No palpable organomegaly. MUSCULOSKELETAL: No joint swelling or deformity. EXTREMITIES: No cyanosis, clubbing, or pedal edema. -NEUROLOGICAL: cranial nn are grossly intact. strength in both lower ext: mild weakness bilaterally, sensation is intact, meningeal signs are absent SKIN: No rashes. No petechiae - Labs CBC & Chem 7: 04/25/19 08:23 04/28/19 08:43 Labs: Abnormal Lab Results - Last 24 Hours (Table) 04/28/19 Range/Units 08:43 Sodium 133 L (137-145) mmol/L Potassium 3.4 L (3.5-5.1) mmol/L Chloride 93 L (98-107) mmol/L Carbon Dioxide 33 H (22-30) mmol/L Creatinine 0.37 L (0.52-1.04) mg/dL Glucose 173 H (74-99) mg/dL Magnesium 1.4 L (1.6-2.3) mg/dL Assessment and Plan Assessment: -ongoing chronic low back pain radiating to both ankles , suspicious for sciatica , with chronic difficulty walking and recent worsening . with Lumbar x- ray showing Subluxation of L3 to the left of L4 with narrowing of the disc space from L2 down to L5, lower back pain with radiculopathy. Lumbar MRI: Significant spinal stenosis at L3-L4 with multilevel degenerative disc disease and facet arthropathy. -Scoliosis -Alcohol abuse, and alcohol withdrawal -severe Hypokalemia, improved -nicotine dependance -Asthma/COPD, not an active issue -Hyperlipidemia -Hypothyroidism -Depression Plan: this is a pleasant 59 yo F who presests with alcohol abuse , risk of alcohol withdrawal, also sever hypokalemia . Continue replacing electrolytes and potassium, continue with calcium and vitamin D, follow-up recommendation by orthopedic and pain management service teams. Continue with pain management, CIWA protocol and vitamins Labs and medication were reviewed.. Continue same treatment. Continue with symptomatic treatment. Resume home medication. Monitor lytes and vitals. DVT and GI prophylaxis. Further recommendations of the clinical course of the patient DVT prophylaxis: Hold Subcutaneous heparin for patient is going for epidural injection GI Prophylaxis: Pepcid PT/OT: Patient is going for subacute rehab Prognosis is guarded
--- NOTE | 2019-04-29 11:31 | P.DS ---
Providers Date of admission: 04/26/19 09:41 Expected date of discharge: 04/29/19 Attending physician: Atilio Walton MD Consults: 04/25/19 15:04 Consult Physician Routine Consulting Provider: Hermelinda Gomez Consult Reason/Comments: back pain. inability to ambulate. Do you want consulting provider notified?: Yes Primary care physician: Yesenia [facility] Course: This is a pleasant 59 years old female w no signs or symptoms of alcohol withdrawal. with past medical history of asthma/COPD, hyperlipidemia, hypothyroidism, depression. She follows up with Dr. Calvin Calle the neurologist and she is recently prescribed [place] 10 mg. She is a patient of Dr. darnell. pt states she came to hospital because of difficulty walking , she has long history of low back pain radiating to both legs/ankles and she follows up with , she is on norco 10-325 mg for this reason, over the last six months she was walking depending on the help of someone to lean on , and could walk small distance ( across the room ) as pt describes. over the last one week it became more difficult for her to walk, she is complaining from significant low back pain and on her pelvis when she walks today when EMS she was in her feces and urine , she explains that because she was drinking vodka, she drinks about twice per week and she could not tell the amount exactly , also she smokes cigarettes b about 1/2 PPD. pt is counseled and she agrees with nicotine patch. Vitals looks stable. Labs CBC and BMP were unremarkable except for low potassium at 2.8, creatinine and sodium are within normal limits, liver enzymes not elevated. Urine drug screen is positive for opioids, tricyclic antidepressants and marijuana. Serum alcohol level was 174. 04/26/2019 Patient presents with low back pain radiating to both legs and ankles has been going on for months associated with difficulty walking which get worse over the last week, she still complaining of from low back pain and needing pain medica tion. Vital signs stable and blood pressure on the high side and this morning 172/88, Norvasc has been added and going to increase the dose to 5 mg daily. Potassium was replaced and went on to follow-up the level. Follow-up magnesium level as well. Lumbar x-ray: Subluxation of L3 to the left of L4 with narrowing of the disc space from L2 down to L5. Patient is currently on Decadron, pain medic ation and spine orthopedic team have been consulted. no signs of alcohol withdrawal this morning 04/27/2019 Patient still complaining of from similar lower back pain with radiculopathy. Lumbar MRI: Significant spinal stenosis at L3-L4 with multilevel degenerative disc disease and facet arthropathy. Patient has been evaluated by pain management service yesterday and their input is appreciated, patient is going for possible epidural injection today. Subcutaneous Heparin was discontinued yesterday. Her blood pressure still elevated 168/99 today, we are going to increase her Norvasc to 10 mg daily, this could be also due to steroid effect and she is currently on the 4 Mg Every 6 Hours, Recommend Decadron Taper upon Discharge. Continue with Pepcid. Labs from Today Are Still Pending. Her CIWA score was 8 yesterday, however later on improved to 2 and 0. Patient might benefit from ECF for rehab 04/28/2019; patient is responding well to current treatment; plan is to transfer patient to skilled rehab once off IV narcotics; we will discontinue IV morphine and start patient on home dose of [place] 04/29/2019; patient remains stable on home dose of [place]; discharge to skilled rehab Plan - Discharge Summary Discharge Rx Participant: No New Discharge Prescriptions: New hydrALAZINE HCL [Apresoline] 25 mg PO TID PRN #90 tab PRN Reason: Blood Pressure - High Lidocaine 5% Patch [Lidoderm 5% Patch] 1 patch TOPICAL DAILY #30 patch amLODIPine [Norvasc] 10 mg PO DAILY #30 tab predniSONE See Taper PO DIRECTED #21 tab Thiamine [Vitamin B-1] 100 mg PO BID-W/MEALS #60 tab Continue Loratadine [Claritin] 10 mg PO DAILY Omeprazole [PriLOSEC] 20 mg PO AC-BID Atorvastatin [Lipitor] 40 mg PO HS Furosemide [Lasix] 20 mg PO DAILY Albuterol Inhaler [Ventolin Hfa Inhaler] 1 - 2 puff INHALATION RT-Q6H PRN PRN Reason: Shortness Of Breath traZODone HCL 50 mg PO HS PRN PRN Reason: Insomnia Multivitamins, Thera [Multivitamin (formulary)] 1 tab PO DAILY Ergocalciferol [Vitamin D2 (DRISDOL)] 50,000 unit PO Piprazole [Abilify] 10 mg PO DAILY DULoxetine HCL [Cymbalta] 60 mg PO DAILY Levothyroxine Sodium [Synthroid] 88 mcg PO DAILY HYDROcodone/APAP 10-325MG [[place] 10-325] 1 tab PO TID #7 tab Discharge Medication List Loratadine [Claritin] 10 mg PO DAILY 04/26/14 [History] Atorvastatin [Lipitor] 40 mg PO HS 07/29/16 [History] Omeprazole [PriLOSEC] 20 mg PO AC-BID 07/29/16 [History] ARIPiprazole [Abilify] 10 mg PO DAILY 04/06/18 [History] Albuterol Inhaler [Ventolin Hfa Inhaler] 1 - 2 puff INHALATION RT-Q6H PRN 04/06/18 [History] DULoxetine HCL [Cymbalta] 60 mg PO DAILY 04/06/18 [History] Ergocalciferol [Vitamin D2 (DRISDOL)] 50,000 unit PO TU 04/06/18 [History] Furosemide [Lasix] 20 mg PO DAILY 04/06/18 [History] Multivitamins, Thera [Multivitamin (formulary)] 1 tab PO DAILY 04/06/18 [History] traZODone HCL 50 mg PO HS PRN 04/06/18 [History] Levothyroxine Sodium [Synthroid] 88 mcg PO DAILY 04/25/19 [History] HYDROcodone/APAP 10-325MG [[place] 10-325] 1 tab PO TID #7 tab 04/29/19 [Rx] Lidocaine 5% Patch [Lidoderm 5% Patch] 1 patch TOPICAL DAILY #30 patch 04/29/19 [Rx] Thiamine [Vitamin B-1] 100 mg PO BID-W/MEALS #60 tab 04/29/19 [Rx] amLODIPine [Norvasc] 10 mg PO DAILY #30 tab 04/29/19 [Rx] hydrALAZINE HCL [Apresoline] 25 mg PO TID PRN #90 tab 04/29/19 [Rx] predniSONE See Taper PO DIRECTED #21 tab 04/29/19 [Rx] Follow up Appointment(s)/Referral(s): Hermelinda Gomez DO [Doctor of Osteopathic Medicine] - 4 Weeks (Patient may follow-up with Kirk Galeano PA-C or Dr. Chon Gomez at [facility] in 4 weeks following discharge. ) Ashley Solis, [NON-STAFF] - 1 Week Yesenia Rahman MD [Primary Care Provider] - 1-2 days Patient Instructions/Handouts: Back Pain (GEN) Activity/Diet/Wound Care/Special Instructions: Regular diet Limited activity until follow up, fall precautions. NO smoking, cessation information provided. Discharge/Stand Alone Forms: [facility] Diary, [facility] Instructions
== END 2019-04-29 14:22 | DRG 552 ==
LOC: EC 08:15 → 6NMEDSUR 11:44 → OBSVTOIN 04-26 09:41
PROVIDERS: ADMIT Internal Medicine; ATTEND Internal Medicine
DX: M48.061 Spinal stenosis, lumbar region without neurogenic claudication (principal); F10.239 Alcohol dependence with withdrawal, unspecified; M41.56 Other secondary scoliosis, lumbar region; M51.16 Intervertebral disc disorders with radiculopathy, lumbar region; M51.17 Intervertebral disc disorders with radiculopathy, lumbosacral region; M47.27 Other spondylosis with radiculopathy, lumbosacral region; M43.16 Spondylolisthesis, lumbar region; G89.29 Other chronic pain; E87.6 Hypokalemia; J44.9 Chronic obstructive pulmonary disease, unspecified; E78.5 Hyperlipidemia, unspecified; F10.229 Alcohol dependence with intoxication, unspecified; E03.9 Hypothyroidism, unspecified; R26.2 Difficulty in walking, not elsewhere classified; F32.9 Major depressive disorder, single episode, unspecified; Y90.6 Blood alcohol level of 120-199 mg/100 ml; F17.210 Nicotine dependence, cigarettes, uncomplicated; Z71.6 Tobacco abuse counseling; Z79.890 Hormone replacement therapy; Z79.891 Long term (current) use of opiate analgesic; Z79.51 Long term (current) use of inhaled steroids; Z79.899 Other long term (current) drug therapy; Z86.14 Personal history of Methicillin resistant Staphylococcus aureus infection; Z86.19 Personal history of other infectious and parasitic diseases; Z82.49 Family history of ischemic heart disease and other diseases of the circulatory system
CPT/HCPCS: 36415; 62323; 70450; 72100; 72148; 80048; 80053; 80076; 80306; 80320; 80329; 81001; 82607; 82746; 83520; 83735; 84439; 84443; 85025; 85610; 85730; 93005; 96365; 96366; 99285